=== PATIENT | female | born 1990 | race African-American/Black ===

== ENCOUNTER 2018-02-06 18:05 | Inpatient (IN) ==
[2018-02-06] MEDS ORDERED: ONDANSETRON 4 MG/2 ML VIAL IV ONE (21:22)
[2018-02-06] MEDS ORDERED: SODIUM CHLORIDE 0.9% 1,000 ML IV STA (21:22)
[2018-02-06] MEDS ORDERED: MORPHINE 2 MG/1 ML SYRINGE IV ONE (21:22)
[2018-02-06] MEDS ORDERED: MORPHINE 10 MG/1 ML VIAL ONE (21:32)
[2018-02-06] MEDS ORDERED: ONDANSETRON 4 MG/2 ML VIAL ONE (21:32)
[2018-02-06 21:56] LABS: INR 1.2; PT Patient Result 12.9 SECS
[2018-02-06 22:05] LABS: Alanine Aminotransferase 21 U/L (13-56); Albumin 3.5 G/DL (3.4-5.0); Alkaline Phosphatase 76 U/L (45-117); Aspartate Amino Transferase 18 U/L (0-37); Bilirubin,Total < 0.39 MG/DL (0.2-1.0); Blood Urea Nitrogen 8 MG/DL (7-18); Calcium 9.3 MG/DL (8.5-10.1); Glucose 111 MG/DL (74-106); Osmolality,Calculated 258.8 MOS/KG (273-304); Potassium 3.6 MMOL/L (3.5-5.1); Sodium 130 MMOL/L (136-145); Total Protein 8.4 G/DL (6.4-8.3)
[2018-02-06 22:09] LABS: Basophils # 0.1 10*3/uL (0.0-0.2); Basophils % 0.3 % (0.0-0.8); Eosinophils % 0.1 % (0.00-10.9); Hemoglobin 8.4 GM/DL (12.0-16.0); Immature Granulocytes % 1.1 %; Immature Granulocytes Absolute 0.22 #; Lymphocytes # 2.2 10*3/uL (1.4-4.0); Lymphocytes % 11.5 % (21.3-54.2); Mean Corpuscular Hemoglobin 19 PG (27-34); Mean Corpuscular Volume 66.7 FL (87-102); Mean Platelet Volume 10.1 FL (9.6-12.0); Monocytes # 2.2 10*3/uL (0.11-0.8); Monocytes % 11.4 % (1.7-12.7); NRBC # 0.04 10*3/uL; Neutrophils # 14.7 10*3/uL (1.4-7.4); Neutrophils % 75.6 % (38.7-73.9); Platelet Count 641 T/CUMM (130-400); Red Cell Distribution Width 18.4 % (9.3-17.3); White Blood Count 19.5 T/CUMM (4-12)
[2018-02-06 22:29] LABS: Anisocytosis 2+; Hypochromasia 2+; Macrocytosis 2+; Platelet Estimate Increased; Polychromasia 1+; Target Cells Few
[2018-02-06 23:21] LABS: Apearance,Urine Slightly Hazy (Clear); Bilirubin,Urine Negative (Negative); Blood, Urine Negative (Negative); Glucose,Urine (UA) Negative (Negative); Ketones,Urine 20 mg/dL (Negative); Mucus,Urine Occasional /LPF (Occasional); Nitrite,Urine Negative (Negative); Protein,Urine Negative; RBC,Urine 2 /HPF (0-4); Squamous Epithelial Cell,Urine Occasional /HPF (0-10); Urine Color Yellow (Yellow); Urine Specific Gravity 1.048 (1.001-1.035); Urine Urobilinogen < 2.0 EU/DL (0.2-1.0); WBC,Urine 6 /HPF (0-6)
[2018-02-06] MEDS ORDERED: CIPROFLOXACIN INJ 400 MG in PREMIX 1 EACH IV STA (23:42)
[2018-02-06] MEDS ORDERED: metroNIDAZOLE INJ 500 MG in PREMIX 1 EACH IV STA (23:42)
[2018-02-06] MEDS ORDERED: CIPROFLOXACIN 400 MG/200 ML PREMIX IV ONE (23:58)
[2018-02-06] MEDS ORDERED: metroNIDAZOLE 500 MG/100 ML PREMIX IV ONE (23:58)
[2018-02-07] MEDS ORDERED: MORPHINE 2 MG/1 ML SYRINGE IV PRN (01:27)
[2018-02-07] MEDS: SODIUM CHLORIDE 0.9% 1,000 ML IV SCH ×3 (03:46→18:12)
[2018-02-07 05:44] LABS: Basophils % 0.2 % (0.0-0.8); Hematocrit 20.8 VOL% (35.7-47.0); Immature Granulocytes % 1.2 %; Immature Granulocytes Absolute 0.27 #; Lymphocytes # 2.3 10*3/uL (1.4-4.0); Lymphocytes % 10.5 % (21.3-54.2); Mean Corpuscular HGB Conc 28.4 GM/DL (32-36); Mean Corpuscular Hemoglobin 19 PG (27-34); Mean Corpuscular Volume 67.3 FL (87-102); Mean Platelet Volume 10.5 FL (9.6-12.0); Monocytes % 13.7 % (1.7-12.7); NRBC # 0.03 10*3/uL; Neutrophils # 16.3 10*3/uL (1.4-7.4); Neutrophils % 74.4 % (38.7-73.9); Platelet Count 599 T/CUMM (130-400); Red Blood Count 3.09 MC/CUMM (3.8-5.5)
[2018-02-07 06:17] LABS: Calcium 8.2 MG/DL (8.5-10.1); Osmolality,Calculated 267.1 MOS/KG (273-304); Potassium 3.6 MMOL/L (3.5-5.1)
[2018-02-07 06:23] LABS: Hemoglobin 5.9 GM/DL (12.0-16.0)
[2018-02-07 06:24] LABS: Hypochromasia 2+
[2018-02-07 06:25] LABS: Microcytosis 2+; Ovalocytes Slight; Platelet Estimate Increased; Target Cells Slight
[2018-02-07] MEDS ORDERED: SODIUM CHLORIDE 0.9% 1,000 ML IV PRN ×3 (06:49→07:54)
[2018-02-07 07:21] LABS: Hematocrit 20.1 VOL% (35.7-47.0)
[2018-02-07 07:23] LABS: Hemoglobin 5.8 GM/DL (12.0-16.0)
[2018-02-07] MEDS: metroNIDAZOLE INJ 500 MG in PREMIX 1 EACH IV SCH ×2 (09:30→18:40)
[2018-02-07] MEDS ORDERED: IRON SUCROSE 300 MG in SODIUM CHLORIDE 0.9% 100 ML IV ONE (11:00)
[2018-02-07] MEDS: CIPROFLOXACIN INJ 400 MG in PREMIX 1 EACH IV SCH (16:18)
[2018-02-07] MEDS: ONDANSETRON 4 MG/2 ML VIAL IV PRN (21:41)
[2018-02-08] MEDS: CIPROFLOXACIN INJ 400 MG in PREMIX 1 EACH IV SCH ×3 (01:31→21:43)
[2018-02-08] MEDS: metroNIDAZOLE INJ 500 MG in PREMIX 1 EACH IV SCH ×3 (03:18→18:11)
[2018-02-08] MEDS: SODIUM CHLORIDE 0.9% 1,000 ML IV SCH ×2 (03:19→17:48)
[2018-02-08 05:27] LABS: Basophils # 0.1 10*3/uL (0.0-0.2); Basophils % 0.4 % (0.0-0.8); Eosinophils # 0.1 10*3/uL (0.0-0.87); Eosinophils % 0.7 % (0.00-10.9); Hematocrit 26.3 VOL% (35.7-47.0); Immature Granulocytes Absolute 0.45 #; Lymphocytes # 2.1 10*3/uL (1.4-4.0); Lymphocytes % 14.2 % (21.3-54.2); Mean Corpuscular HGB Conc 30.4 GM/DL (32-36); Mean Corpuscular Hemoglobin 22 PG (27-34); Mean Corpuscular Volume 72.5 FL (87-102); Mean Platelet Volume 10.1 FL (9.6-12.0); Monocytes % 13.4 % (1.7-12.7); NRBC # 0.04 10*3/uL; Neutrophils # 10.1 10*3/uL (1.4-7.4); Neutrophils % 68.3 % (38.7-73.9); Platelet Count 519 T/CUMM (130-400); Red Blood Count 3.63 MC/CUMM (3.8-5.5); Red Cell Distribution Width 21.2 % (9.3-17.3); White Blood Count 14.8 T/CUMM (4-12)
[2018-02-08 06:03] LABS: Albumin 2.6 G/DL (3.4-5.0); Bilirubin,Total 0.5 MG/DL (0.2-1.0); Calcium 8.3 MG/DL (8.5-10.1); Ferritin 115.4 ng/ml (8-252); Osmolality,Calculated 269.8 MOS/KG (273-304); Potassium 3.5 MMOL/L (3.5-5.1); Total Protein 6.7 G/DL (6.4-8.3)
[2018-02-08] MEDS ORDERED: IRON SUCROSE 300 MG in SODIUM CHLORIDE 0.9% 100 ML IV ONE (10:30)
[2018-02-08] MEDS: MULTIVITAMIN (BEROCCA) TABLET PO SCH (12:15)
[2018-02-09] MEDS: metroNIDAZOLE INJ 500 MG in PREMIX 1 EACH IV SCH ×3 (04:41→21:02)
[2018-02-09] MEDS: SODIUM CHLORIDE 0.9% 1,000 ML IV SCH ×4 (04:41→21:03)
[2018-02-09 05:55] LABS: Basophils # 0.1 10*3/uL (0.0-0.2); Basophils % 0.3 % (0.0-0.8); Eosinophils # 0.1 10*3/uL (0.0-0.87); Eosinophils % 0.5 % (0.00-10.9); Hematocrit 26.7 VOL% (35.7-47.0); Hemoglobin 8.2 GM/DL (12.0-16.0); Immature Granulocytes % 2.3 %; Lymphocytes # 2.2 10*3/uL (1.4-4.0); Lymphocytes % 12.5 % (21.3-54.2); Mean Corpuscular HGB Conc 30.7 GM/DL (32-36); Mean Corpuscular Hemoglobin 22 PG (27-34); Mean Corpuscular Volume 72.8 FL (87-102); Mean Platelet Volume 9.8 FL (9.6-12.0); Monocytes # 2.3 10*3/uL (0.11-0.8); Monocytes % 13.1 % (1.7-12.7); NRBC # 0.08 10*3/uL; Neutrophils # 12.3 10*3/uL (1.4-7.4); Neutrophils % 71.3 % (38.7-73.9); Platelet Count 556 T/CUMM (130-400); Red Blood Count 3.67 MC/CUMM (3.8-5.5); Red Cell Distribution Width 21.8 % (9.3-17.3); White Blood Count 17.3 T/CUMM (4-12)
[2018-02-09 06:30] LABS: Calcium 8.2 MG/DL (8.5-10.1); Osmolality,Calculated 268.8 MOS/KG (273-304); Potassium 3.5 MMOL/L (3.5-5.1)
[2018-02-09] MEDS: CIPROFLOXACIN INJ 400 MG in PREMIX 1 EACH IV SCH ×2 (08:28→22:21)
[2018-02-09] MEDS: MULTIVITAMIN (BEROCCA) TABLET PO SCH (10:48)
[2018-02-09] MEDS ORDERED: IRON SUCROSE 300 MG in SODIUM CHLORIDE 0.9% 100 ML IV ONE (11:00)
[2018-02-09] MEDS: SODIUM PHOSPHATE ENEMA 133 ML BOTTLE RECTAL ONE ×2 (11:26→11:35)
[2018-02-09] MEDS: methylPREDNISolone SOD SUC 40 MG/1 ML VIAL IV SCH ×2 (15:51→21:10)
[2018-02-09] MEDS ORDERED: ACETAMINOPHEN 500 MG TABLET PO PRN (16:37)
[2018-02-10] MEDS: metroNIDAZOLE INJ 500 MG in PREMIX 1 EACH IV SCH ×3 (04:47→20:45)
[2018-02-10] MEDS: methylPREDNISolone SOD SUC 40 MG/1 ML VIAL IV SCH ×3 (04:50→21:35)
[2018-02-10 06:21] LABS: Basophils # 0.1 10*3/uL (0.0-0.2); Basophils % 0.2 % (0.0-0.8); Hematocrit 27.2 VOL% (35.7-47.0); Hemoglobin 8.4 GM/DL (12.0-16.0); Immature Granulocytes % 2.5 %; Immature Granulocytes Absolute 0.63 #; Lymphocytes # 1.1 10*3/uL (1.4-4.0); Lymphocytes % 4.3 % (21.3-54.2); Mean Corpuscular HGB Conc 30.9 GM/DL (32-36); Mean Corpuscular Hemoglobin 23 PG (27-34); Mean Corpuscular Volume 73.9 FL (87-102); Mean Platelet Volume 9.8 FL (9.6-12.0); Monocytes # 0.8 10*3/uL (0.11-0.8); Monocytes % 3.2 % (1.7-12.7); NRBC # 0.04 10*3/uL; Neutrophils # 22.7 10*3/uL (1.4-7.4); Neutrophils % 89.8 % (38.7-73.9); Platelet Count 554 T/CUMM (130-400); Red Blood Count 3.68 MC/CUMM (3.8-5.5); White Blood Count 25.2 T/CUMM (4-12)
[2018-02-10 06:46] LABS: Band Neutrophils 4 % (0-10); Giant Platelets Few; Hypochromasia 1+; Lymphocytes 6 % (20-55); Macrocytosis Slight; Ovalocytes Slight; Platelet Estimate Adequate; Polychromasia Slight; Segmented Neutrophils 87 % (50-85); Total Cells Counted 100
[2018-02-10 07:01] LABS: Albumin 2.4 G/DL (3.4-5.0); Bilirubin,Total 0.7 MG/DL (0.2-1.0); Calcium 8.8 MG/DL (8.5-10.1); Osmolality,Calculated 274.5 MOS/KG (273-304); Potassium 3.8 MMOL/L (3.5-5.1)
[2018-02-10] MEDS: MULTIVITAMIN (BEROCCA) TABLET PO SCH (08:56)
[2018-02-10] MEDS: CIPROFLOXACIN INJ 400 MG in PREMIX 1 EACH IV SCH ×2 (08:56→21:48)
[2018-02-10] MEDS: SODIUM CHLORIDE 0.9% 1,000 ML IV SCH ×2 (10:19→21:00)
[2018-02-10] MEDS ORDERED: LIDOCAINE 100 MG/5 ML SYRINGE ONE (12:22)
[2018-02-10] MEDS ORDERED: PROPOFOL 200 MG/20 ML VIAL IV ONE (12:22)
[2018-02-10] MEDS ORDERED: IRON SUCROSE 300 MG in SODIUM CHLORIDE 0.9% 100 ML IV ONE (17:00)
[2018-02-10 22:26] LABS: IgA Serum (MAYO) 509 mg/dL (61 - 356)
[2018-02-11] MEDS: methylPREDNISolone SOD SUC 40 MG/1 ML VIAL IV SCH ×3 (04:55→20:27)
[2018-02-11] MEDS: metroNIDAZOLE INJ 500 MG in PREMIX 1 EACH IV SCH ×3 (04:58→20:29)
[2018-02-11 05:15] LABS: Basophils # 0.1 10*3/uL (0.0-0.2); Basophils % 0.2 % (0.0-0.8); Hematocrit 27.2 VOL% (35.7-47.0); Hemoglobin 8.5 GM/DL (12.0-16.0); Immature Granulocytes % 5.7 %; Immature Granulocytes Absolute 1.44 #; Lymphocytes # 1.1 10*3/uL (1.4-4.0); Lymphocytes % 4.3 % (21.3-54.2); Mean Corpuscular HGB Conc 31.3 GM/DL (32-36); Mean Corpuscular Hemoglobin 23 PG (27-34); Mean Corpuscular Volume 72.7 FL (87-102); Mean Platelet Volume 10.1 FL (9.6-12.0); Monocytes # 1.6 10*3/uL (0.11-0.8); Monocytes % 6.2 % (1.7-12.7); NRBC # 0.03 10*3/uL; Neutrophils % 83.6 % (38.7-73.9); Platelet Count 602 T/CUMM (130-400); Red Blood Count 3.74 MC/CUMM (3.8-5.5); Red Cell Distribution Width 23.6 % (9.3-17.3); White Blood Count 25.1 T/CUMM (4-12)
[2018-02-11 05:41] LABS: Band Neutrophils 5 % (0-10); Giant Platelets Few; Hypochromasia 1+; Lymphocytes 2 % (20-55); Myelocytes 1 %; Ovalocytes Slight; Platelet Estimate Increased; Segmented Neutrophils 90 % (50-85); Total Cells Counted 100
[2018-02-11 05:42] LABS: Macrocytosis Slight; Polychromasia Slight
[2018-02-11 05:50] LABS: % Iron Saturation 94.2 % (18-50)
[2018-02-11 05:51] LABS: Calcium 8.6 MG/DL (8.5-10.1); Osmolality,Calculated 274.7 MOS/KG (273-304); Potassium 3.8 MMOL/L (3.5-5.1)
[2018-02-11] MEDS: CIPROFLOXACIN INJ 400 MG in PREMIX 1 EACH IV SCH ×2 (09:53→21:55)
[2018-02-11] MEDS: MULTIVITAMIN (BEROCCA) TABLET PO SCH (09:53)
[2018-02-11] MEDS: ONDANSETRON 4 MG/2 ML VIAL IV PRN ×2 (12:09→20:24)
[2018-02-11] MEDS: SODIUM CHLORIDE 0.9% 1,000 ML IV SCH ×3 (12:12→20:00)
[2018-02-11 13:39] LABS: Tissue Transglutaminase IgA Ab < 1.2 U/mL
[2018-02-12] MEDS: SODIUM CHLORIDE 0.9% 1,000 ML IV SCH (01:00)
[2018-02-12] MEDS: methylPREDNISolone SOD SUC 40 MG/1 ML VIAL IV SCH (04:40)
[2018-02-12] MEDS: metroNIDAZOLE INJ 500 MG in PREMIX 1 EACH IV SCH (04:41)
[2018-02-12] MEDS: ONDANSETRON 4 MG/2 ML VIAL IV PRN (04:47)
[2018-02-12 06:29] LABS: Basophils # 0.1 10*3/uL (0.0-0.2); Basophils % 0.3 % (0.0-0.8); Hematocrit 28.4 VOL% (35.7-47.0); Hemoglobin 8.4 GM/DL (12.0-16.0); Immature Granulocytes % 12.9 %; Immature Granulocytes Absolute 3.01 #; Lymphocytes # 1.9 10*3/uL (1.4-4.0); Mean Corpuscular HGB Conc 29.6 GM/DL (32-36); Mean Corpuscular Hemoglobin 23 PG (27-34); Mean Corpuscular Volume 75.9 FL (87-102); Mean Platelet Volume 10.2 FL (9.6-12.0); Monocytes # 1.4 10*3/uL (0.11-0.8); Monocytes % 6.2 % (1.7-12.7); NRBC # 0.09 10*3/uL; Neutrophils % 72.6 % (38.7-73.9); Platelet Count 587 T/CUMM (130-400); Red Blood Count 3.74 MC/CUMM (3.8-5.5); Red Cell Distribution Width 24.5 % (9.3-17.3); White Blood Count 23.3 T/CUMM (4-12)
[2018-02-12 06:52] LABS: Band Neutrophils 8 % (0-10); Giant Platelets Few; Hypochromasia 1+; Lymphocytes 7 % (20-55); Macrocytosis Slight; Myelocytes 3 %; Platelet Estimate Increased; Segmented Neutrophils 75 % (50-85); Total Cells Counted 100
[2018-02-12 07:05] LABS: Calcium 8.4 MG/DL (8.5-10.1); Osmolality,Calculated 279.3 MOS/KG (273-304); Potassium 4.1 MMOL/L (3.5-5.1)
[2018-02-12 08:09] VITALS: BP 122/80
[2018-02-12] MEDS: MULTIVITAMIN (BEROCCA) TABLET PO SCH (08:28)
[2018-02-12] MEDS: CIPROFLOXACIN INJ 400 MG in PREMIX 1 EACH IV SCH (08:29)
== END 2018-02-12 10:00 | disposition home or self-care (01) | DRG 386 ==
LOC: N.ED 18:05 → N.EDINP 02-07 01:27 → N.2E 02-07 02:37
PROVIDERS: ADMIT Hospitalist; ATTEND Hospitalist

== ENCOUNTER 2018-06-13 19:38 | Inpatient (IN) ==
[2018-06-14] MEDS: SODIUM CHLORIDE 0.9% 1,000 ML IV SCH ×3 (01:30→21:25)
[2018-06-14] MEDS: metroNIDAZOLE INJ 500 MG in PREMIX 1 EACH IV SCH ×4 (03:54→21:24)
[2018-06-14] MEDS: LEVOFLOXACIN INJ 500 MG in PREMIX 1 EACH IV SCH (04:55)
[2018-06-14 07:33] LABS: Basophils % 0.3 % (0.0-0.8); Eosinophils # 0.1 10*3/uL (0.0-0.87); Eosinophils % 0.5 % (0.00-10.9); Hemoglobin 9.4 GM/DL (12.0-16.0); Immature Granulocytes % 0.5 %; Immature Granulocytes Absolute 0.07 #; Lymphocytes # 1.7 10*3/uL (1.4-4.0); Lymphocytes % 11.4 % (21.3-54.2); Mean Corpuscular HGB Conc 33.6 GM/DL (32-36); Mean Corpuscular Hemoglobin 28 PG (27-34); Mean Corpuscular Volume 82.8 FL (87-102); Mean Platelet Volume 8.9 FL (9.6-12.0); Monocytes # 1.7 10*3/uL (0.11-0.8); Monocytes % 11.1 % (1.7-12.7); Neutrophils # 11.7 10*3/uL (1.4-7.4); Neutrophils % 76.2 % (38.7-73.9); Platelet Count 547 T/CUMM (130-400); Red Blood Count 3.38 MC/CUMM (3.8-5.5); Red Cell Distribution Width 14.8 % (9.3-17.3); White Blood Count 15.3 T/CUMM (4-12)
[2018-06-14 08:05] LABS: Alanine Aminotransferase 9 U/L (13-56); Albumin 1.7 G/DL (3.4-5.0); Alkaline Phosphatase 102 U/L (45-117); Aspartate Amino Transferase 7 U/L (0-37); Bilirubin,Total < 0.39 MG/DL (0.2-1.0); Blood Urea Nitrogen 5 MG/DL (7-18); Calcium 7.8 MG/DL (8.5-10.1); Glucose 89 MG/DL (74-106); Potassium 3.2 MMOL/L (3.5-5.1); Sodium 136 MMOL/L (136-145); Total Protein 6.3 G/DL (6.4-8.3)
[2018-06-14] MEDS ORDERED: MAGNESIUM SULF RIDER 4 GM in PREMIX 1 EACH IV PRN (11:28)
[2018-06-14] MEDS ORDERED: MAGNESIUM SULF RIDER 2 GM in PREMIX 1 EACH IV PRN (11:28)
[2018-06-14] MEDS: methylPREDNISolone SOD SUC 40 MG/1 ML VIAL IV SCH ×2 (13:01→17:16)
[2018-06-14] MEDS: ONDANSETRON 4 MG/2 ML VIAL IV PRN (13:02)
[2018-06-14] MEDS: POTASSIUM CHLORIDE RIDER 10 MEQ in PREMIX 1 EACH IV PRN ×4 (15:18→23:50)
[2018-06-15] MEDS ORDERED: metroNIDAZOLE INJ 500 MG in PREMIX 1 EACH IV SCH
[2018-06-15] MEDS ORDERED: LEVOFLOXACIN INJ 500 MG in PREMIX 1 EACH IV SCH (01:00)
[2018-06-15] MEDS: methylPREDNISolone SOD SUC 40 MG/1 ML VIAL IV SCH ×3 (03:15→21:53)
[2018-06-15] MEDS: LEVOFLOXACIN INJ 500 MG in PREMIX 1 EACH IV SCH (03:16)
[2018-06-15] MEDS: metroNIDAZOLE INJ 500 MG in PREMIX 1 EACH IV SCH ×4 (05:08→21:50)
[2018-06-15] MEDS: SODIUM CHLORIDE 0.9% 1,000 ML IV SCH (06:36)
[2018-06-15] MEDS: POTASSIUM CHLORIDE RIDER 10 MEQ in PREMIX 1 EACH IV PRN ×4 (09:34→15:58)
[2018-06-15 09:48] LABS: Potassium 3.2 MMOL/L (3.5-5.1)
[2018-06-15] MEDS: SODIUM CHLOR 0.9% KCL 20 MEQ 20 MEQ/1,000 ML BAG IV SCH (11:34)
[2018-06-16] MEDS: SODIUM CHLOR 0.9% KCL 20 MEQ 20 MEQ/1,000 ML BAG IV SCH ×2 (00:02→11:37)
[2018-06-16] MEDS: LEVOFLOXACIN INJ 500 MG in PREMIX 1 EACH IV SCH (01:06)
[2018-06-16 04:53] LABS: Basophils % 0.1 % (0.0-0.8); Hematocrit 27.9 VOL% (35.7-47.0); Hemoglobin 9.5 GM/DL (12.0-16.0); Immature Granulocytes % 1.8 %; Immature Granulocytes Absolute 0.36 #; Lymphocytes % 5.2 % (21.3-54.2); Mean Corpuscular HGB Conc 34.1 GM/DL (32-36); Mean Corpuscular Hemoglobin 28 PG (27-34); Mean Corpuscular Volume 81.8 FL (87-102); Mean Platelet Volume 9.5 FL (9.6-12.0); Monocytes # 0.6 10*3/uL (0.11-0.8); Monocytes % 2.8 % (1.7-12.7); Neutrophils # 17.5 10*3/uL (1.4-7.4); Neutrophils % 90.1 % (38.7-73.9); Platelet Count 629 T/CUMM (130-400); Red Blood Count 3.41 MC/CUMM (3.8-5.5); Red Cell Distribution Width 15.4 % (9.3-17.3); White Blood Count 19.5 T/CUMM (4-12)
[2018-06-16] MEDS: metroNIDAZOLE INJ 500 MG in PREMIX 1 EACH IV SCH ×2 (04:55→08:37)
[2018-06-16] MEDS: methylPREDNISolone SOD SUC 40 MG/1 ML VIAL IV SCH ×3 (04:58→22:16)
[2018-06-16 05:25] LABS: Calcium 8.7 MG/DL (8.5-10.1); Osmolality,Calculated 278.3 MOS/KG (273-304); Potassium 3.5 MMOL/L (3.5-5.1)
[2018-06-16] MEDS: ONDANSETRON 4 MG/2 ML VIAL IV PRN (08:44)
[2018-06-16] MEDS ORDERED: SODIUM CHLORIDE 0.9% 1,000 ML IV SCH (11:30)
[2018-06-16] MEDS: POTASSIUM CHLORIDE RIDER 10 MEQ in PREMIX 1 EACH IV PRN ×3 (11:37→15:33)
[2018-06-16] MEDS: sulfaSALAzine 500 MG TABLET PO SCH (22:13)
[2018-06-17] MEDS: methylPREDNISolone SOD SUC 40 MG/1 ML VIAL IV SCH (05:42)
[2018-06-17 07:24] VITALS: BP 113/78
[2018-06-17] MEDS: sulfaSALAzine 500 MG TABLET PO SCH (08:32)
== END 2018-06-17 12:10 | disposition home or self-care (01) | DRG 387 ==
LOC: N.2E 21:12 → SUATTDRO 21:12
PROVIDERS: ADMIT Internal Medicine; ATTEND Internal Medicine

== ENCOUNTER 2019-06-16 16:48 | Inpatient (IN) ==
[2019-06-16] MEDS ORDERED: ONDANSETRON 4 MG/2 ML VIAL IV STA (17:32)
[2019-06-16] MEDS ORDERED: SODIUM CHLORIDE 0.9% 500 ML IV STA (17:32)
[2019-06-16] MEDS ORDERED: HYDROmorphone 2 MG/1 ML VIAL IV STA (17:32)
[2019-06-16] MEDS ORDERED: CEFTAROLINE 600 MG in SODIUM CHLORIDE 0.9% 100 ML IV STA (17:35)
[2019-06-16 18:32] LABS: Albumin 2.9 G/DL (3.4-5.0); Bilirubin,Total 0.7 MG/DL (0.2-1.0); Calcium 9.5 MG/DL (8.5-10.1); Osmolality,Calculated 264.5 MOS/KG (273-304); Total Protein 9.5 G/DL (6.4-8.3)
[2019-06-16 18:35] LABS: Basophils # 0.1 10*3/uL (0.0-0.2); Basophils % 0.3 % (0.0-0.8); Hematocrit 24.6 VOL% (35.7-47.0); Immature Granulocytes % 6.2 %; Immature Granulocytes Absolute 2.43 #; Lymphocytes % 5.1 % (21.3-54.2); Mean Corpuscular HGB Conc 25.6 GM/DL (32-36); Mean Corpuscular Volume 60.4 FL (87-102); Mean Platelet Volume 9.9 FL (9.6-12.0); Monocytes % 6.8 % (1.7-12.7); NRBC # 0.39 10*3/uL; Neutrophils % 81.6 % (38.7-73.9); Platelet Count 766 T/CUMM (130-400); Red Blood Count 4.07 MC/CUMM (3.8-5.5); Red Cell Distribution Width 20.6 % (9.3-17.3); White Blood Count 38.9 T/CUMM (4-12)
[2019-06-16 18:36] LABS: Hemoglobin 6.3 GM/DL (12.0-16.0)
[2019-06-16] MEDS ORDERED: VANCOMYCIN INJ 1,000 MG in SODIUM CHLORIDE 0.9% 250 ML IV STA ×2 (19:06→19:58)
[2019-06-16 19:23] LABS: Sedimentation Rate-Westergren 60 MM/HR (0-20)
[2019-06-16] MEDS ORDERED: SODIUM CHLORIDE 0.9% 2,600 ML IV ONE ×2 (19:23→19:49)
[2019-06-16] MEDS ORDERED: methylPREDNISolone SOD SUC 125 MG/2 ML VIAL IV STA (19:24)
[2019-06-16] MEDS ORDERED: ALBUTEROL 2.5 MG/3 ML NEB RESP TX PRN (19:49)
[2019-06-16] MEDS ORDERED: ACETAMINOPHEN 325 MG TABLET PO PRN (19:49)
[2019-06-16] MEDS ORDERED: SODIUM CHLORIDE 0.9% 1,000 ML IV PRN (19:57)
[2019-06-16 20:26] LABS: Thyroid Stimulating Hormone 3.11 uIU/ml (0.358-3.74)
[2019-06-16 20:26] LABS: Band Neutrophils 7 % (0-10); Lymphocytes 2 % (20-55); Metamyelocytes 3 %; Myelocytes 1 %; Platelet Estimate Increased; Segmented Neutrophils 84 % (50-85); Total Cells Counted 100
[2019-06-16 20:27] LABS: Anisocytosis 2+; Hypochromasia 3+; Microcytosis 2+; Ovalocytes Few; Polychromasia 1+
[2019-06-16 20:44] LABS: Ferritin 36.8 ng/ml (8-252)
[2019-06-16] MEDS: MORPHINE 4 MG/1 ML VIAL IV PRN (21:21)
[2019-06-16] MEDS: FAMOTIDINE 20 MG/2 ML VIAL IV SCH (21:50)
[2019-06-16] MEDS: SODIUM CHLORIDE 0.9% 1,000 ML IV SCH (22:21)
[2019-06-17] MEDS: SODIUM CHLORIDE 0.9% 1,000 ML IV SCH ×5 (01:27→22:22)
[2019-06-17 02:22] LABS: Apearance,Urine CLOUDY (Clear); Bilirubin,Urine Negative (Negative); Blood, Urine Large mg/dL (Negative); Glucose,Urine (UA) 50 mg/dL (Negative); Hyaline Casts,Urine 11 /LPF (0-3); Ketones,Urine 20 mg/dL (Negative); Mucus,Urine Many /LPF (Occasional); Nitrite,Urine Negative (Negative); Protein,Urine 100 MG/DL; RBC,Urine 27 /HPF (0-4); Squamous Epithelial Cell,Urine Occasional /HPF (0-10); Urine Color Amber (Yellow); Urine Specific Gravity 1.018 (1.001-1.035); Urine Urobilinogen < 2.0 EU/DL (0.2-1.0); WBC,Urine 395 /HPF (0-6)
[2019-06-17 06:34] LABS: Basophils # 0.1 10*3/uL (0.0-0.2); Basophils % 0.3 % (0.0-0.8); Hematocrit 25.4 VOL% (35.7-47.0); Hemoglobin 7.2 GM/DL (12.0-16.0); Immature Granulocytes % 4.6 %; Immature Granulocytes Absolute 1.22 #; Lymphocytes # 0.9 10*3/uL (1.4-4.0); Lymphocytes % 3.5 % (21.3-54.2); Mean Corpuscular HGB Conc 28.3 GM/DL (32-36); Mean Corpuscular Volume 70.9 FL (87-102); Mean Platelet Volume 9.7 FL (9.6-12.0); Monocytes % 1.5 % (1.7-12.7); NRBC # 0.09 10*3/uL; Neutrophils % 90.1 % (38.7-73.9); Platelet Count 583 T/CUMM (130-400); Red Blood Count 3.58 MC/CUMM (3.8-5.5); Red Cell Distribution Width 26.4 % (9.3-17.3); White Blood Count 26.5 T/CUMM (4-12)
[2019-06-17 06:56] LABS: Band Neutrophils 3 % (0-10); Hypochromasia 1+; Lymphocytes 1 % (20-55); Platelet Estimate Adequate; Segmented Neutrophils 96 % (50-85); Total Cells Counted 100
[2019-06-17 06:57] LABS: Microcytosis 1+
[2019-06-17 07:07] LABS: Albumin 2.2 G/DL (3.4-5.0); Bilirubin,Total 0.7 MG/DL (0.2-1.0); Calcium 6.9 MG/DL (8.5-10.1); Osmolality,Calculated 270.8 MOS/KG (273-304); Total Protein 7.2 G/DL (6.4-8.3)
[2019-06-17] MEDS ORDERED: CEFTAROLINE 600 MG in SODIUM CHLORIDE 0.9% 100 ML IV SCH (08:00)
[2019-06-17] MEDS ORDERED: VANCOMYCIN 1,000 MG VIAL ONE (08:12)
[2019-06-17] MEDS ORDERED: cefTRIAXone 1,000 MG VIAL ONE (08:12)
[2019-06-17] MEDS ORDERED: MORPHINE 4 MG/1 ML VIAL IV PRN (09:43)
[2019-06-17] MEDS ORDERED: MAGNESIUM HYDROXIDE SUSP 30 ML UDCUP PO PRN (09:43)
[2019-06-17] MEDS: cefTRIAXone 2,000 MG in SYRINGE 1 EACH IV SCH (09:54)
[2019-06-17] MEDS: VANCOMYCIN INJ 1,500 MG in SODIUM CHLORIDE 0.9% 500 ML IV SCH ×2 (09:54→22:22)
[2019-06-17] MEDS ORDERED: PROPOFOL 200 MG/20 ML VIAL IV ONE (09:57)
[2019-06-17] MEDS ORDERED: fentaNYL 100 MCG/2 ML VIAL ONE (09:58)
[2019-06-17] MEDS ORDERED: GLYCOPYRROLATE 0.4 MG/2 ML VIAL ONE (09:58)
[2019-06-17] MEDS ORDERED: ONDANSETRON 4 MG/2 ML VIAL ONE (09:58)
[2019-06-17] MEDS ORDERED: SEVOFLURANE 1 UNIT/15 MINUTE INH ONE (09:58)
[2019-06-17] MEDS ORDERED: MIDAZOLAM 2 MG/2 ML VIAL ONE (09:58)
[2019-06-17] MEDS ORDERED: ROCURONIUM 100 MG/10 ML VIAL IV ONE (09:59)
[2019-06-17] MEDS ORDERED: NEOSTIGMINE 10 MG/10 ML VIAL ONE (09:59)
[2019-06-17] MEDS ORDERED: SODIUM CHLORIDE 0.9% 1,000 ML IV PRN (10:00)
[2019-06-17] MEDS: HYDROmorphone 2 MG/1 ML VIAL IV PRN ×3 (10:01→10:16)
[2019-06-17] MEDS ORDERED: HYDROmorphone 2 MG/1 ML VIAL ONE (10:01)
[2019-06-17 10:14] LABS: Apearance,Urine CLEAR (Clear); Bilirubin,Urine Negative (Negative); Blood, Urine Small mg/dL (Negative); Glucose,Urine (UA) 50 mg/dL (Negative); Ketones,Urine 20 mg/dL (Negative); Mucus,Urine Occasional /LPF (Occasional); Nitrite,Urine Negative (Negative); Protein,Urine Negative; RBC,Urine <1 /HPF (0-4); Squamous Epithelial Cell,Urine Occasional /HPF (0-10); Urine Color Yellow (Yellow); Urine Specific Gravity 1.018 (1.001-1.035); Urine Urobilinogen < 2.0 EU/DL (0.2-1.0); WBC,Urine 1 /HPF (0-6)
[2019-06-17] MEDS: FAMOTIDINE 20 MG/2 ML VIAL IV SCH (10:49)
[2019-06-17] MEDS: PANTOPRAZOLE 40 MG TABLET PO SCH ×2 (11:02→20:55)
[2019-06-17 12:06] LABS: FTA-ABS (MHATP) NONREACTIVE (NONREACTIVE)
[2019-06-17 12:23] LABS: HIV Antigen/Antibody Result Nonreactive (Nonreactive)
[2019-06-17] MEDS: FERRIC GLUCONATE COMPLEX 250 MG in SODIUM CHLORIDE 0.9% 100 ML IV SCH (12:44)
[2019-06-18] MEDS: FONDAPARINUX 2.5 MG/0.5 ML SYRINGE SUBCUT SCH (03:36)
[2019-06-18 05:51] LABS: Basophils # 0.1 10*3/uL (0.0-0.2); Basophils % 0.3 % (0.0-0.8); Hematocrit 31.1 VOL% (35.7-47.0); Hemoglobin 9.2 GM/DL (12.0-16.0); Immature Granulocytes % 4.3 %; Immature Granulocytes Absolute 1.11 #; Lymphocytes # 1.1 10*3/uL (1.4-4.0); Lymphocytes % 4.3 % (21.3-54.2); Mean Corpuscular HGB Conc 29.6 GM/DL (32-36); Mean Corpuscular Volume 74.6 FL (87-102); Mean Platelet Volume 9.9 FL (9.6-12.0); Monocytes % 4.6 % (1.7-12.7); NRBC # 0.39 10*3/uL; Neutrophils % 86.5 % (38.7-73.9); Platelet Count 504 T/CUMM (130-400); Red Blood Count 4.17 MC/CUMM (3.8-5.5); Red Cell Distribution Width 26.1 % (9.3-17.3); White Blood Count 25.7 T/CUMM (4-12)
[2019-06-18 06:05] LABS: Calcium 8.7 MG/DL (8.5-10.1); Osmolality,Calculated 275.5 MOS/KG (273-304)
[2019-06-18 06:21] LABS: Band Neutrophils 22 % (0-10); Lymphocytes 5 % (20-55); Nucleated Red Blood Cells 4 (0-5); Platelet Estimate Increased; Poikilocytosis 1+; Segmented Neutrophils 65 % (50-85); Total Cells Counted 100
[2019-06-18 06:22] LABS: Anisocytosis 2+; Giant Platelets Few; Macrocytosis Slight
[2019-06-18] MEDS: VANCOMYCIN INJ 1,500 MG in SODIUM CHLORIDE 0.9% 500 ML IV SCH (10:03)
[2019-06-18] MEDS: cefTRIAXone 2,000 MG in SYRINGE 1 EACH IV SCH (10:04)
[2019-06-18] MEDS: FERRIC GLUCONATE COMPLEX 250 MG in SODIUM CHLORIDE 0.9% 100 ML IV SCH (10:08)
[2019-06-18] MEDS: PANTOPRAZOLE 40 MG TABLET PO SCH ×2 (10:11→21:26)
[2019-06-18] MEDS: SODIUM CHLORIDE 0.9% 1,000 ML IV SCH ×3 (12:31→20:00)
[2019-06-18] MEDS ORDERED: POTASSIUM CHLORIDE 20 MEQ PACK PO ONE (15:42)
[2019-06-18] MEDS: sulfaSALAzine 500 MG TABLET PO SCH (21:25)
[2019-06-18] MEDS: FLUCONAZOLE INJ 400 MG in PREMIX 1 EACH IV SCH (22:57)
[2019-06-19 05:42] LABS: Basophils % 0.2 % (0.0-0.8); Eosinophils % 0.1 % (0.00-10.9); Hematocrit 31.3 VOL% (35.7-47.0); Hemoglobin 9.2 GM/DL (12.0-16.0); Immature Granulocytes % 3.3 %; Immature Granulocytes Absolute 0.55 #; Lymphocytes # 1.9 10*3/uL (1.4-4.0); Lymphocytes % 11.6 % (21.3-54.2); Mean Corpuscular HGB Conc 29.4 GM/DL (32-36); Mean Corpuscular Volume 75.1 FL (87-102); Mean Platelet Volume 9.6 FL (9.6-12.0); Monocytes % 6.6 % (1.7-12.7); NRBC # 0.18 10*3/uL; Neutrophils % 78.2 % (38.7-73.9); Platelet Count 553 T/CUMM (130-400); Red Blood Count 4.17 MC/CUMM (3.8-5.5); Red Cell Distribution Width 27.4 % (9.3-17.3); White Blood Count 16.6 T/CUMM (4-12)
[2019-06-19 06:15] LABS: Bilirubin,Total 0.6 MG/DL (0.2-1.0); Calcium 8.6 MG/DL (8.5-10.1); Osmolality,Calculated 285.6 MOS/KG (273-304); Total Protein 6.3 G/DL (6.4-8.3)
[2019-06-19 06:22] LABS: Anisocytosis 1+; Platelet Estimate Increased
[2019-06-19] MEDS: FERRIC GLUCONATE COMPLEX 250 MG in SODIUM CHLORIDE 0.9% 100 ML IV SCH (08:07)
[2019-06-19] MEDS: FONDAPARINUX 2.5 MG/0.5 ML SYRINGE SUBCUT SCH (08:15)
[2019-06-19] MEDS: cefTRIAXone 2,000 MG in SYRINGE 1 EACH IV SCH (08:15)
[2019-06-19] MEDS: SODIUM CHLORIDE 0.9% 1,000 ML IV SCH ×2 (08:16→22:42)
[2019-06-19] MEDS ORDERED: NYSTATIN 500,000 UNIT/5 ML UDCUP SWISH/SWAL SCH (09:00)
[2019-06-19] MEDS: sulfaSALAzine 500 MG TABLET PO SCH ×3 (09:49→21:51)
[2019-06-19] MEDS: PANTOPRAZOLE 40 MG TABLET PO SCH ×2 (09:50→21:52)
[2019-06-19] MEDS: VANCOMYCIN INJ 1,250 MG in SODIUM CHLORIDE 0.9% 250 ML IV SCH ×2 (09:50→22:41)
[2019-06-19] MEDS: ONDANSETRON 4 MG/2 ML VIAL IV PRN (09:56)
[2019-06-19] MEDS: VANCOMYCIN INJ 1,500 MG in SODIUM CHLORIDE 0.9% 500 ML IV SCH (11:53)
[2019-06-19] MEDS: POTASSIUM CHLORIDE 20 MEQ TABLET PO PRN ×2 (16:48→18:35)
[2019-06-19] MEDS: PINDOLOL 5 MG TABLET PO SCH (16:49)
[2019-06-19] MEDS: FLUCONAZOLE INJ 400 MG in PREMIX 1 EACH IV SCH (22:41)
[2019-06-20 05:28] LABS: Basophils % 0.2 % (0.0-0.8); Eosinophils # 0.1 10*3/uL (0.0-0.87); Eosinophils % 0.4 % (0.00-10.9); Immature Granulocytes % 2.5 %; Immature Granulocytes Absolute 0.37 #; Lymphocytes # 1.9 10*3/uL (1.4-4.0); Lymphocytes % 12.5 % (21.3-54.2); Mean Corpuscular HGB Conc 28.8 GM/DL (32-36); Mean Corpuscular Volume 74.9 FL (87-102); Mean Platelet Volume 9.3 FL (9.6-12.0); Monocytes % 7.5 % (1.7-12.7); NRBC # 0.06 10*3/uL; Neutrophils % 76.9 % (38.7-73.9); Platelet Count 539 T/CUMM (130-400); Red Blood Count 4.35 MC/CUMM (3.8-5.5); Red Cell Distribution Width 28.8 % (9.3-17.3); White Blood Count 14.8 T/CUMM (4-12)
[2019-06-20 05:51] LABS: Hematocrit 31.5 VOL% (35.7-47.0); Hemoglobin 9.7 GM/DL (12.0-16.0)
[2019-06-20 05:53] LABS: Anisocytosis 1+; Hypochromasia 1+; Microcytosis 1+
[2019-06-20 05:54] LABS: Platelet Estimate Increased; Polychromasia Slight; Spherocytes Slight
[2019-06-20 05:55] LABS: Calcium 8.5 MG/DL (8.5-10.1); Osmolality,Calculated 274.4 MOS/KG (273-304); Ovalocytes Slight
[2019-06-20] MEDS: POTASSIUM CHLORIDE 20 MEQ TABLET PO PRN (06:12)
[2019-06-20] MEDS ORDERED: MAGNESIUM SULF RIDER 2 GM in PREMIX 1 EACH IV PRN (07:14)
[2019-06-20] MEDS ORDERED: MAGNESIUM SULF RIDER 4 GM in PREMIX 1 EACH IV PRN (07:14)
[2019-06-20] MEDS: PINDOLOL 5 MG TABLET PO SCH (09:25)
[2019-06-20] MEDS: PANTOPRAZOLE 40 MG TABLET PO SCH ×2 (09:25→22:54)
[2019-06-20] MEDS: sulfaSALAzine 500 MG TABLET PO SCH ×2 (09:26→22:53)
[2019-06-20] MEDS: FONDAPARINUX 2.5 MG/0.5 ML SYRINGE SUBCUT SCH (09:26)
[2019-06-20] MEDS: cefTRIAXone 2,000 MG in SYRINGE 1 EACH IV SCH (09:27)
[2019-06-20] MEDS: VANCOMYCIN INJ 1,250 MG in SODIUM CHLORIDE 0.9% 250 ML IV SCH ×2 (09:27→22:55)
[2019-06-20] MEDS: POTASSIUM CHLORIDE 20 MEQ/15 ML UDCUP PO PRN ×3 (09:33→16:49)
[2019-06-20] MEDS: KETOROLAC 30 MG/1 ML VIAL IV PRN (11:35)
[2019-06-20] MEDS: FERRIC GLUCONATE COMPLEX 250 MG in SODIUM CHLORIDE 0.9% 100 ML IV SCH (11:37)
[2019-06-20] MEDS: POTASSIUM CHLORIDE 20 MEQ TABLET PO SCH (13:15)
[2019-06-20] MEDS: SODIUM CHLORIDE 0.9% 1,000 ML IV SCH ×2 (13:25→20:00)
[2019-06-20] MEDS: FLUCONAZOLE 200 MG TABLET PO SCH (15:08)
[2019-06-20] MEDS: ONDANSETRON 4 MG/2 ML VIAL IV PRN (17:30)
[2019-06-20] MEDS: SERTRALINE 25 MG TABLET PO SCH (22:54)
[2019-06-21 06:25] LABS: Basophils % 0.2 % (0.0-0.8); Eosinophils # 0.3 10*3/uL (0.0-0.87); Eosinophils % 2.7 % (0.00-10.9); Hematocrit 32.1 VOL% (35.7-47.0); Hemoglobin 9.7 GM/DL (12.0-16.0); Immature Granulocytes % 2.2 %; Immature Granulocytes Absolute 0.27 #; Lymphocytes # 1.4 10*3/uL (1.4-4.0); Lymphocytes % 11.3 % (21.3-54.2); Mean Corpuscular HGB Conc 30.2 GM/DL (32-36); Mean Corpuscular Volume 75.7 FL (87-102); Mean Platelet Volume 9.6 FL (9.6-12.0); Monocytes % 7.5 % (1.7-12.7); Neutrophils % 76.1 % (38.7-73.9); Platelet Count 562 T/CUMM (130-400); Red Blood Count 4.24 MC/CUMM (3.8-5.5); Red Cell Distribution Width 29.7 % (9.3-17.3); White Blood Count 12.4 T/CUMM (4-12)
[2019-06-21 06:39] LABS: Calcium 8.6 MG/DL (8.5-10.1); Osmolality,Calculated 277.1 MOS/KG (273-304)
[2019-06-21 06:42] LABS: Hypochromasia 1+; Ovalocytes Slight; Platelet Estimate Adequate
[2019-06-21 06:43] LABS: Microcytosis 1+
[2019-06-21] MEDS: ONDANSETRON 4 MG/2 ML VIAL IV PRN ×3 (08:55→22:33)
[2019-06-21] MEDS: FLUCONAZOLE 200 MG TABLET PO SCH (08:57)
[2019-06-21] MEDS: PANTOPRAZOLE 40 MG TABLET PO SCH ×2 (08:57→22:25)
[2019-06-21] MEDS: POTASSIUM CHLORIDE 20 MEQ TABLET PO SCH (08:57)
[2019-06-21] MEDS: sulfaSALAzine 500 MG TABLET PO SCH ×2 (08:57→22:25)
[2019-06-21] MEDS: PINDOLOL 5 MG TABLET PO SCH (08:58)
[2019-06-21] MEDS: cefTRIAXone 2,000 MG in SODIUM CHLORIDE 0.9% 100 ML IV SCH (08:58)
[2019-06-21] MEDS: FONDAPARINUX 2.5 MG/0.5 ML SYRINGE SUBCUT SCH (08:59)
[2019-06-21] MEDS: SODIUM CHLORIDE 0.9% 1,000 ML IV SCH (09:01)
[2019-06-21] MEDS: FERRIC GLUCONATE COMPLEX 250 MG in SODIUM CHLORIDE 0.9% 100 ML IV SCH (09:57)
[2019-06-21] MEDS: POTASSIUM CHLORIDE 20 MEQ/15 ML UDCUP PO SCH (09:57)
[2019-06-21] MEDS: VANCOMYCIN INJ 1,250 MG in SODIUM CHLORIDE 0.9% 250 ML IV SCH ×2 (11:42→22:26)
[2019-06-21] MEDS: KETOROLAC 30 MG/1 ML VIAL IV PRN (15:55)
[2019-06-21] MEDS: SERTRALINE 25 MG TABLET PO SCH (22:25)
[2019-06-22 06:17] LABS: Basophils # 0.1 10*3/uL (0.0-0.2); Basophils % 0.4 % (0.0-0.8); Eosinophils # 0.4 10*3/uL (0.0-0.87); Eosinophils % 3.3 % (0.00-10.9); Hematocrit 34.3 VOL% (35.7-47.0); Hemoglobin 9.8 GM/DL (12.0-16.0); Immature Granulocytes % 1.8 %; Immature Granulocytes Absolute 0.21 #; Lymphocytes # 1.4 10*3/uL (1.4-4.0); Lymphocytes % 11.3 % (21.3-54.2); Mean Corpuscular HGB Conc 28.6 GM/DL (32-36); Mean Corpuscular Volume 78.3 FL (87-102); Mean Platelet Volume 9.4 FL (9.6-12.0); Monocytes % 9.1 % (1.7-12.7); Neutrophils % 74.1 % (38.7-73.9); Platelet Count 593 T/CUMM (130-400); Red Blood Count 4.38 MC/CUMM (3.8-5.5); Red Cell Distribution Width 30.5 % (9.3-17.3)
[2019-06-22 06:22] LABS: Hypochromasia 1+; Microcytosis 1+; Osmolality,Calculated 280.8 MOS/KG (273-304); Platelet Estimate Increased
[2019-06-22] MEDS ORDERED: PROMETHAZINE 25 MG/1 ML VIAL IM ONE (07:56)
[2019-06-22] MEDS: cefTRIAXone 2,000 MG in SODIUM CHLORIDE 0.9% 100 ML IV SCH (10:23)
[2019-06-22] MEDS: FONDAPARINUX 2.5 MG/0.5 ML SYRINGE SUBCUT SCH (10:26)
[2019-06-22] MEDS: KETOROLAC 30 MG/1 ML VIAL IV PRN (10:28)
[2019-06-22] MEDS: POTASSIUM CHLORIDE 20 MEQ/15 ML UDCUP PO SCH (10:30)
[2019-06-22] MEDS: ONDANSETRON 4 MG/2 ML VIAL IV PRN ×2 (10:31→17:41)
[2019-06-22] MEDS: PANTOPRAZOLE 40 MG TABLET PO SCH ×2 (10:53→21:08)
[2019-06-22] MEDS: sulfaSALAzine 500 MG TABLET PO SCH ×2 (10:53→21:08)
[2019-06-22] MEDS: VANCOMYCIN INJ 1,250 MG in SODIUM CHLORIDE 0.9% 250 ML IV SCH ×2 (10:59→23:15)
[2019-06-22] MEDS: PINDOLOL 5 MG TABLET PO SCH (11:01)
[2019-06-22] MEDS ORDERED: FLUCONAZOLE 200 MG TABLET PO SCH (13:00)
[2019-06-22] MEDS: FLUCONAZOLE 200 MG TABLET PO SCH (14:26)
[2019-06-22] MEDS: POTASSIUM CHLORIDE RIDER 10 MEQ in PREMIX 1 EACH IV PRN ×3 (14:49→21:24)
[2019-06-22] MEDS: MORPHINE 4 MG/1 ML VIAL IV PRN (15:55)
[2019-06-22] MEDS: SODIUM CHLORIDE 0.9% 1,000 ML IV SCH ×3 (19:20→21:36)
[2019-06-22] MEDS: PROMETHAZINE 25 MG/1 ML VIAL IM PRN (20:01)
[2019-06-22] MEDS: SERTRALINE 25 MG TABLET PO SCH (21:08)
[2019-06-23] MEDS: ONDANSETRON 4 MG/2 ML VIAL IV PRN ×2 (01:22→08:55)
[2019-06-23] MEDS: POTASSIUM CHLORIDE RIDER 10 MEQ in PREMIX 1 EACH IV PRN ×4 (01:22→12:47)
[2019-06-23] MEDS: MORPHINE 4 MG/1 ML VIAL IV PRN ×3 (05:13→16:54)
[2019-06-23 05:16] LABS: Basophils # 0.1 10*3/uL (0.0-0.2); Basophils % 0.4 % (0.0-0.8); Eosinophils # 0.4 10*3/uL (0.0-0.87); Eosinophils % 2.5 % (0.00-10.9); Hematocrit 34.1 VOL% (35.7-47.0); Immature Granulocytes % 1.2 %; Immature Granulocytes Absolute 0.17 #; Lymphocytes # 1.1 10*3/uL (1.4-4.0); Lymphocytes % 8.1 % (21.3-54.2); Mean Corpuscular HGB Conc 28.7 GM/DL (32-36); Mean Corpuscular Volume 79.1 FL (87-102); Mean Platelet Volume 9.8 FL (9.6-12.0); Neutrophils % 77.8 % (38.7-73.9); Platelet Count 594 T/CUMM (130-400); Red Blood Count 4.31 MC/CUMM (3.8-5.5); Red Cell Distribution Width 31.2 % (9.3-17.3); White Blood Count 14.2 T/CUMM (4-12)
[2019-06-23 05:42] LABS: Hemoglobin 9.8 GM/DL (12.0-16.0)
[2019-06-23 05:43] LABS: Hypochromasia 1+; Platelet Estimate Adequate
[2019-06-23 05:44] LABS: Microcytosis Slight
[2019-06-23 06:00] LABS: Osmolality,Calculated 287.4 MOS/KG (273-304)
[2019-06-23] MEDS: SODIUM CHLORIDE 0.9% 1,000 ML IV SCH ×2 (06:57→17:42)
[2019-06-23] MEDS: FONDAPARINUX 2.5 MG/0.5 ML SYRINGE SUBCUT SCH (09:56)
[2019-06-23] MEDS: PROMETHAZINE 25 MG/1 ML VIAL IM PRN ×2 (10:07→11:49)
[2019-06-23] MEDS: PANTOPRAZOLE 40 MG TABLET PO SCH ×3 (11:32→21:47)
[2019-06-23] MEDS: DOXYCYCLINE HYCLATE 100 MG CAPSULE PO SCH ×3 (11:32→21:47)
[2019-06-23] MEDS: sulfaSALAzine 500 MG TABLET PO SCH ×3 (11:33→21:47)
[2019-06-23] MEDS: PINDOLOL 5 MG TABLET PO SCH ×3 (11:37→21:45)
[2019-06-23] MEDS: POTASSIUM CHLORIDE 20 MEQ/15 ML UDCUP PO SCH (11:55)
[2019-06-23] MEDS: cefTRIAXone 2,000 MG in SODIUM CHLORIDE 0.9% 100 ML IV SCH (11:57)
[2019-06-23] MEDS: PROCHLORPERAZINE 5 MG TABLET PO SCH (20:59)
[2019-06-23] MEDS: SERTRALINE 25 MG TABLET PO SCH (21:45)
[2019-06-24] MEDS: SODIUM CHLORIDE 0.9% 1,000 ML IV SCH ×2 (03:08→17:47)
[2019-06-24] MEDS: MORPHINE 4 MG/1 ML VIAL IV PRN (05:02)
[2019-06-24] MEDS: ONDANSETRON 4 MG/2 ML VIAL IV PRN ×3 (07:15→21:01)
[2019-06-24] MEDS ORDERED: LACTATED RINGERS 1,000 ML IV SCH (08:00)
[2019-06-24 08:23] LABS: Basophils # 0.1 10*3/uL (0.0-0.2); Basophils % 0.4 % (0.0-0.8); Eosinophils # 0.3 10*3/uL (0.0-0.87); Eosinophils % 2.5 % (0.00-10.9); Hematocrit 34.2 VOL% (35.7-47.0); Hemoglobin 9.6 GM/DL (12.0-16.0); Immature Granulocytes Absolute 0.14 #; Lymphocytes # 1.9 10*3/uL (1.4-4.0); Lymphocytes % 13.5 % (21.3-54.2); Mean Corpuscular HGB Conc 28.1 GM/DL (32-36); Mean Corpuscular Volume 79.7 FL (87-102); Mean Platelet Volume 9.5 FL (9.6-12.0); Monocytes % 10.5 % (1.7-12.7); Neutrophils % 72.1 % (38.7-73.9); Platelet Count 586 T/CUMM (130-400); Red Blood Count 4.29 MC/CUMM (3.8-5.5); White Blood Count 13.8 T/CUMM (4-12)
[2019-06-24 08:52] LABS: Osmolality,Calculated 289.3 MOS/KG (273-304)
[2019-06-24] MEDS ORDERED: LIDOCAINE 100 MG/5 ML SYRINGE ONE (09:00)
[2019-06-24] MEDS ORDERED: PROPOFOL 200 MG/20 ML VIAL IV ONE (09:00)
[2019-06-24] MEDS: PANTOPRAZOLE 40 MG TABLET PO SCH ×2 (14:20→21:02)
[2019-06-24] MEDS: DOXYCYCLINE HYCLATE 100 MG CAPSULE PO SCH ×2 (14:20→21:01)
[2019-06-24] MEDS: sulfaSALAzine 500 MG TABLET PO SCH ×2 (14:20→21:02)
[2019-06-24] MEDS: PINDOLOL 5 MG TABLET PO SCH ×2 (14:20→21:02)
[2019-06-24] MEDS: PROCHLORPERAZINE 5 MG TABLET PO SCH ×2 (14:21→21:02)
[2019-06-24] MEDS: FONDAPARINUX 2.5 MG/0.5 ML SYRINGE SUBCUT SCH (14:21)
[2019-06-24] MEDS: POTASSIUM CHLORIDE 20 MEQ/15 ML UDCUP PO SCH (14:21)
[2019-06-24] MEDS: PROMETHAZINE 25 MG/1 ML VIAL IM PRN (14:33)
[2019-06-24] MEDS: ACYCLOVIR INJ 750 MG in SODIUM CHLORIDE 0.9% 250 ML IV SCH (17:48)
[2019-06-24] MEDS: SERTRALINE 25 MG TABLET PO SCH (21:02)
[2019-06-25] MEDS: MORPHINE 4 MG/1 ML VIAL IV PRN ×2 (04:56→18:04)
[2019-06-25] MEDS: ACYCLOVIR INJ 750 MG in SODIUM CHLORIDE 0.9% 250 ML IV SCH ×2 (04:59→16:43)
[2019-06-25 05:41] LABS: Calcium 8.5 MG/DL (8.5-10.1); Osmolality,Calculated 291.1 MOS/KG (273-304)
[2019-06-25 06:07] LABS: Basophils # 0.1 10*3/uL (0.0-0.2); Basophils % 0.4 % (0.0-0.8); Eosinophils # 0.3 10*3/uL (0.0-0.87); Eosinophils % 2.9 % (0.00-10.9); Hemoglobin 9.3 GM/DL (12.0-16.0); Immature Granulocytes % 0.8 %; Immature Granulocytes Absolute 0.09 #; Lymphocytes # 2.1 10*3/uL (1.4-4.0); Lymphocytes % 18.4 % (21.3-54.2); Mean Corpuscular HGB Conc 29.1 GM/DL (32-36); Mean Platelet Volume 10.1 FL (9.6-12.0); Monocytes % 10.7 % (1.7-12.7); Neutrophils % 66.8 % (38.7-73.9); Platelet Count 555 T/CUMM (130-400); White Blood Count 11.6 T/CUMM (4-12)
[2019-06-25] MEDS: ONDANSETRON 4 MG/2 ML VIAL IV PRN ×3 (06:09→22:36)
[2019-06-25 06:17] LABS: Anisocytosis 2+; Hypochromasia 2+; Microcytosis 2+; Ovalocytes 1+; Platelet Estimate Increased; Smudge Cells 1+; Target Cells 1+
[2019-06-25] MEDS: SODIUM CHLORIDE 0.9% 1,000 ML IV SCH (06:21)
[2019-06-25] MEDS: FONDAPARINUX 2.5 MG/0.5 ML SYRINGE SUBCUT SCH (09:36)
[2019-06-25] MEDS: POTASSIUM CHLORIDE 20 MEQ/15 ML UDCUP PO SCH (09:38)
[2019-06-25] MEDS: DEXTROSE 5% NACL 0.45% 1,000 ML IV SCH (14:13)
[2019-06-25] MEDS: PANTOPRAZOLE 40 MG TABLET PO SCH ×2 (14:14→20:52)
[2019-06-25] MEDS: PROCHLORPERAZINE 5 MG TABLET PO SCH ×2 (14:14→20:52)
[2019-06-25] MEDS: sulfaSALAzine 500 MG TABLET PO SCH ×2 (14:14→20:52)
[2019-06-25] MEDS: PINDOLOL 5 MG TABLET PO SCH ×2 (14:14→20:52)
[2019-06-25] MEDS: DOXYCYCLINE HYCLATE 100 MG CAPSULE PO SCH ×2 (14:14→20:52)
[2019-06-25] MEDS: SERTRALINE 25 MG TABLET PO SCH (20:52)
[2019-06-26] MEDS: DEXTROSE 5% NACL 0.45% 1,000 ML IV SCH ×3 (01:05→20:26)
[2019-06-26] MEDS: ACYCLOVIR INJ 750 MG in SODIUM CHLORIDE 0.9% 250 ML IV SCH (04:52)
[2019-06-26] MEDS: MORPHINE 4 MG/1 ML VIAL IV PRN (05:23)
[2019-06-26] MEDS: ONDANSETRON 4 MG/2 ML VIAL IV PRN ×3 (06:25→18:03)
[2019-06-26 07:00] LABS: Basophils # 0.1 10*3/uL (0.0-0.2); Basophils % 0.7 % (0.0-0.8); Eosinophils # 0.2 10*3/uL (0.0-0.87); Eosinophils % 2.4 % (0.00-10.9); Hematocrit 31.1 VOL% (35.7-47.0); Hemoglobin 9.3 GM/DL (12.0-16.0); Immature Granulocytes % 0.5 %; Immature Granulocytes Absolute 0.05 #; Lymphocytes # 1.8 10*3/uL (1.4-4.0); Lymphocytes % 18.6 % (21.3-54.2); Mean Corpuscular HGB Conc 29.9 GM/DL (32-36); Mean Corpuscular Volume 78.9 FL (87-102); Mean Platelet Volume 9.5 FL (9.6-12.0); Monocytes % 9.9 % (1.7-12.7); Neutrophils % 67.9 % (38.7-73.9); Platelet Count 501 T/CUMM (130-400); Red Blood Count 3.94 MC/CUMM (3.8-5.5); White Blood Count 9.6 T/CUMM (4-12)
[2019-06-26 07:16] LABS: Calcium 8.5 MG/DL (8.5-10.1); Osmolality,Calculated 289.3 MOS/KG (273-304)
[2019-06-26 07:37] LABS: Anisocytosis 1+; Hypochromasia 1+; Microcytosis 1+
[2019-06-26 07:38] LABS: Platelet Estimate Increased
[2019-06-26] MEDS: POTASSIUM CHLORIDE RIDER 10 MEQ in PREMIX 1 EACH IV PRN ×3 (08:34→11:22)
[2019-06-26] MEDS: FONDAPARINUX 2.5 MG/0.5 ML SYRINGE SUBCUT SCH (08:34)
[2019-06-26] MEDS ORDERED: ZINC OXIDE PASTE 113 GM TUBE TOP PRN (10:40)
[2019-06-26] MEDS: SODIUM CHLORIDE 0.9% 1,000 ML IV SCH (12:25)
[2019-06-26] MEDS: ACYCLOVIR 200 MG CAPSULE PO SCH ×3 (13:50→20:22)
[2019-06-26] MEDS: PROCHLORPERAZINE 5 MG TABLET PO SCH ×2 (15:08→20:21)
[2019-06-26] MEDS: DOXYCYCLINE HYCLATE 100 MG CAPSULE PO SCH ×2 (15:08→20:22)
[2019-06-26] MEDS: PINDOLOL 5 MG TABLET PO SCH ×2 (15:08→20:23)
[2019-06-26] MEDS: PANTOPRAZOLE 40 MG TABLET PO SCH ×2 (15:08→20:23)
[2019-06-26] MEDS: sulfaSALAzine 500 MG TABLET PO SCH ×2 (15:08→20:20)
[2019-06-26] MEDS: POTASSIUM CHLORIDE 20 MEQ/15 ML UDCUP PO SCH (15:09)
[2019-06-26] MEDS: SERTRALINE 25 MG TABLET PO SCH (20:23)
[2019-06-27] MEDS: ONDANSETRON 4 MG/2 ML VIAL IV PRN ×2 (04:00→12:43)
[2019-06-27] MEDS: DEXTROSE 5% NACL 0.45% 1,000 ML IV SCH (05:00)
[2019-06-27] MEDS: MORPHINE 4 MG/1 ML VIAL IV PRN (07:05)
[2019-06-27] MEDS: POTASSIUM CHLORIDE 20 MEQ/15 ML UDCUP PO SCH (08:15)
[2019-06-27] MEDS: PROCHLORPERAZINE 5 MG TABLET PO SCH ×2 (08:16→21:14)
[2019-06-27] MEDS: sulfaSALAzine 500 MG TABLET PO SCH ×2 (08:16→21:13)
[2019-06-27] MEDS: DOXYCYCLINE HYCLATE 100 MG CAPSULE PO SCH ×2 (08:16→21:13)
[2019-06-27] MEDS: PANTOPRAZOLE 40 MG TABLET PO SCH ×2 (08:16→21:14)
[2019-06-27] MEDS: PINDOLOL 5 MG TABLET PO SCH ×2 (08:16→21:14)
[2019-06-27] MEDS: FONDAPARINUX 2.5 MG/0.5 ML SYRINGE SUBCUT SCH (08:17)
[2019-06-27] MEDS: ACYCLOVIR 200 MG CAPSULE PO SCH ×3 (08:18→15:24)
[2019-06-27 08:28] LABS: Calcium 8.7 MG/DL (8.5-10.1); Osmolality,Calculated 291.1 MOS/KG (273-304)
[2019-06-27] MEDS ORDERED: POTASSIUM CHLORIDE INJ 50 MEQ, MAGNESIUM SULF INJ 4 GM in SODIUM CHLORIDE 0.9% 500 ML IV ONE (10:30)
[2019-06-27] MEDS: DEXT 5% LACT RING KCL 20 MEQ 20 MEQ/1,000 ML BAG IV SCH ×2 (10:54→21:15)
[2019-06-27] MEDS ORDERED: hydrALAZINE 20 MG/1 ML VIAL IV PRN (12:36)
[2019-06-27 16:10] LABS: Calcium 8.9 MG/DL (8.5-10.1); Osmolality,Calculated 291.1 MOS/KG (273-304)
[2019-06-27] MEDS: SERTRALINE 25 MG TABLET PO SCH (21:13)
[2019-06-27] MEDS: PROMETHAZINE 25 MG/1 ML VIAL IM PRN (21:39)
[2019-06-28] MEDS: ACYCLOVIR INJ 750 MG in SODIUM CHLORIDE 0.9% 250 ML IV SCH (03:32)
[2019-06-28] MEDS: DEXT 5% LACT RING KCL 20 MEQ 20 MEQ/1,000 ML BAG IV SCH (05:04)
[2019-06-28 05:21] LABS: Basophils # 0.1 10*3/uL (0.0-0.2); Eosinophils # 0.2 10*3/uL (0.0-0.87); Eosinophils % 2.7 % (0.00-10.9); Hematocrit 32.9 VOL% (35.7-47.0); Hemoglobin 9.7 GM/DL (12.0-16.0); Immature Granulocytes % 0.4 %; Immature Granulocytes Absolute 0.03 #; Lymphocytes # 1.8 10*3/uL (1.4-4.0); Lymphocytes % 22.6 % (21.3-54.2); Mean Corpuscular HGB Conc 29.5 GM/DL (32-36); Mean Corpuscular Volume 79.1 FL (87-102); Mean Platelet Volume 9.8 FL (9.6-12.0); Monocytes % 11.1 % (1.7-12.7); Neutrophils % 62.2 % (38.7-73.9); Platelet Count 460 T/CUMM (130-400); Red Blood Count 4.16 MC/CUMM (3.8-5.5); White Blood Count 7.9 T/CUMM (4-12)
[2019-06-28 05:41] LABS: Calcium 8.7 MG/DL (8.5-10.1); Osmolality,Calculated 288.4 MOS/KG (273-304)
[2019-06-28 05:47] LABS: Platelet Estimate Normal; Polychromasia Few
[2019-06-28] MEDS: POTASSIUM CHLORIDE RIDER 10 MEQ in PREMIX 1 EACH IV PRN ×3 (06:03→13:06)
[2019-06-28] MEDS: DOXYCYCLINE HYCLATE 100 MG CAPSULE PO SCH ×2 (09:37→21:23)
[2019-06-28] MEDS: PANTOPRAZOLE 40 MG TABLET PO SCH ×2 (09:37→21:24)
[2019-06-28] MEDS: PROCHLORPERAZINE 5 MG TABLET PO SCH ×2 (09:38→21:23)
[2019-06-28] MEDS: FONDAPARINUX 2.5 MG/0.5 ML SYRINGE SUBCUT SCH (09:38)
[2019-06-28] MEDS: sulfaSALAzine 500 MG TABLET PO SCH ×2 (09:38→21:22)
[2019-06-28] MEDS: PINDOLOL 5 MG TABLET PO SCH ×2 (09:41→21:24)
[2019-06-28] MEDS: POTASSIUM CHLORIDE 20 MEQ/15 ML UDCUP PO SCH ×2 (09:44→13:36)
[2019-06-28] MEDS: ONDANSETRON 4 MG/2 ML VIAL IV PRN (11:05)
[2019-06-28] MEDS: SERTRALINE 25 MG TABLET PO SCH (21:24)
[2019-06-29] MEDS: DEXT 5% LACT RING KCL 20 MEQ 20 MEQ/1,000 ML BAG IV SCH ×3 (01:37→11:23)
[2019-06-29 08:24] LABS: Calcium 8.6 MG/DL (8.5-10.1); Osmolality,Calculated 284.7 MOS/KG (273-304)
[2019-06-29] MEDS: PROCHLORPERAZINE 5 MG TABLET PO SCH (09:01)
[2019-06-29] MEDS: PANTOPRAZOLE 40 MG TABLET PO SCH (09:01)
[2019-06-29] MEDS: PINDOLOL 5 MG TABLET PO SCH (09:01)
[2019-06-29] MEDS: DOXYCYCLINE HYCLATE 100 MG CAPSULE PO SCH (09:03)
[2019-06-29] MEDS: sulfaSALAzine 500 MG TABLET PO SCH (09:03)
[2019-06-29] MEDS: POTASSIUM CHLORIDE 20 MEQ/15 ML UDCUP PO SCH (09:04)
[2019-06-29] MEDS: FONDAPARINUX 2.5 MG/0.5 ML SYRINGE SUBCUT SCH (09:04)
[2019-06-29] MEDS: POTASSIUM CHLORIDE RIDER 10 MEQ in PREMIX 1 EACH IV PRN ×3 (09:08→14:45)
[2019-06-29] MEDS: MORPHINE 4 MG/1 ML VIAL IV PRN (11:20)
[2019-06-29 12:00] VITALS: BP 159/101
== END 2019-06-29 17:05 | disposition home health service (06) | DRG 558 ==
LOC: N.ED 16:48 → SUATTDRO 19:48 → N.EDINP 19:48 → N.CC 20:35 → N.2E 06-17 15:15
PROVIDERS: ADMIT Internal Medicine

== ENCOUNTER 2020-06-21 19:41 | Inpatient (IN) ==
[2020-06-21] MEDS ORDERED: PANTOPRAZOLE 40 MG VIAL IV STA (23:27)
[2020-06-21] MEDS ORDERED: HYDROmorphone 2 MG/1 ML VIAL IV STA (23:27)
[2020-06-21] MEDS ORDERED: ONDANSETRON 4 MG/2 ML VIAL IV STA (23:27)
[2020-06-21] MEDS ORDERED: SODIUM CHLORIDE 0.9% 1,000 ML IV STA (23:27)
[2020-06-22 00:48] LABS: Basophils # 0.1 10*3/uL (0.0-0.2); Basophils % 0.4 % (0.0-0.8); Eosinophils # 0.2 10*3/uL (0.0-0.87); Eosinophils % 0.9 % (0.00-10.9); Hematocrit 29.4 VOL% (35.7-47.0); Hemoglobin 9.3 GM/DL (12.0-16.0); Immature Granulocytes % 0.9 %; Immature Granulocytes Absolute 0.16 #; Lymphocytes # 1.5 10*3/uL (1.4-4.0); Lymphocytes % 8.7 % (21.3-54.2); Mean Corpuscular HGB Conc 31.6 GM/DL (32-36); Mean Corpuscular Volume 86.2 FL (87-102); Monocytes % 11.5 % (1.7-12.7); NRBC # 0.02 10*3/uL; Neutrophils % 77.6 % (38.7-73.9); Platelet Count 641 T/CUMM (130-400); Red Blood Count 3.41 MC/CUMM (3.8-5.5); Red Cell Distribution Width 14.9 % (9.3-17.3); White Blood Count 17.4 T/CUMM (4-12)
[2020-06-22 00:50] LABS: Alanine Aminotransferase 19 U/L (13-56); Albumin 3.2 G/DL (3.4-5.0); Alkaline Phosphatase 80 U/L (45-117); Amylase 16 U/L (25-115); Aspartate Amino Transferase 13 U/L (0-37); Beta HCG Titer < 1.00 mIU/ml (1-3); Bilirubin,Total < 0.39 MG/DL (0.2-1.0); Blood Urea Nitrogen 8 MG/DL (7-18); Calcium 8.5 MG/DL (8.5-10.1); Estimated Glom Filtration Rate 136 ML/MIN; Glucose 106 MG/DL (74-106); Osmolality,Calculated 259.7 MOS/KG (273-304)
[2020-06-22] MEDS ORDERED: PROMETHAZINE 25 MG/1 ML VIAL IM PRN (02:20)
[2020-06-22] MEDS ORDERED: diphenhydrAMINE CAP 25 MG CAPSULE PO PRN (02:20)
[2020-06-22] MEDS ORDERED: SIMETHICONE CHEW 125 MG TABLET PO PRN (02:20)
[2020-06-22] MEDS ORDERED: ACETAMINOPHEN 325 MG TABLET PO PRN (02:20)
[2020-06-22] MEDS ORDERED: NICOTINE 21 MG/24 HR PATCH TRANSDERM PRN (02:20)
[2020-06-22] MEDS ORDERED: ZALEPLON 5 MG CAPSULE PO PRN (02:20)
[2020-06-22] MEDS ORDERED: DEXTROSE 50% 25 GM/50 ML VIAL IV PRN (02:20)
[2020-06-22] MEDS ORDERED: GLUCAGON 1 MG VIAL IM PRN (02:20)
[2020-06-22] MEDS ORDERED: hydrALAZINE 20 MG/1 ML VIAL IV PRN (02:20)
[2020-06-22] MEDS ORDERED: guaiFENesin/DM ER 600-30 MG TABLET PO PRN (02:20)
[2020-06-22] MEDS: cefTRIAXone 1,000 MG in SYRINGE 1 EACH IV SCH (02:55)
[2020-06-22 03:39] LABS: Bilirubin,Urine Negative (Negative); Blood, Urine Negative (Negative); Glucose,Urine (UA) Negative (Negative); Ketones,Urine 20 mg/dL (Negative); Mucus,Urine Occasional /LPF (Occasional); Nitrite,Urine Negative (Negative); Protein,Urine Negative; RBC,Urine 3 /HPF (0-4); Squamous Epithelial Cell,Urine Occasional /HPF (0-10); Urine Appearance CLEAR (Clear); Urine Color Straw (Yellow); Urine Specific Gravity > 1.060 (1.001-1.035); Urine Urobilinogen < 2.0 EU/DL (0.2-1.0)
[2020-06-22] MEDS: SODIUM CHLOR 0.9% KCL 20 MEQ 20 MEQ/1,000 ML BAG IV SCH ×3 (03:55→23:06)
[2020-06-22] MEDS: MORPHINE 4 MG/1 ML VIAL IV PRN ×3 (04:38→23:03)
[2020-06-22] MEDS: ONDANSETRON 4 MG/2 ML VIAL IV PRN ×3 (04:39→22:54)
[2020-06-22] MEDS: metroNIDAZOLE INJ 500 MG in PREMIX 1 EACH IV SCH ×3 (05:15→17:33)
[2020-06-22 06:14] LABS: Basophils # 0.1 10*3/uL (0.0-0.2); Basophils % 0.3 % (0.0-0.8); Eosinophils # 0.2 10*3/uL (0.0-0.87); Eosinophils % 0.8 % (0.00-10.9); Hematocrit 24.9 VOL% (35.7-47.0); Immature Granulocytes % 0.8 %; Immature Granulocytes Absolute 0.14 #; Lymphocytes # 2.6 10*3/uL (1.4-4.0); Lymphocytes % 14.5 % (21.3-54.2); Mean Corpuscular HGB Conc 30.9 GM/DL (32-36); Mean Corpuscular Volume 86.8 FL (87-102); Mean Platelet Volume 10.2 FL (9.6-12.0); NRBC # 0.02 10*3/uL; Neutrophils % 69.6 % (38.7-73.9); Platelet Count 521 T/CUMM (130-400); Red Blood Count 2.87 MC/CUMM (3.8-5.5); White Blood Count 17.8 T/CUMM (4-12)
[2020-06-22 06:15] LABS: Hemoglobin 7.7 GM/DL (12.0-16.0)
[2020-06-22 06:30] LABS: Calcium 8.1 MG/DL (8.5-10.1); Osmolality,Calculated 267.1 MOS/KG (273-304)
[2020-06-22 06:32] LABS: Band Neutrophils 5 % (0-10); Eosinophils 2 % (0-10); Hypochromasia 2+; Lymphocytes 13 % (20-55); Platelet Estimate Adequate; Segmented Neutrophils 70 % (50-85); Total Cells Counted 100
[2020-06-22] MEDS ORDERED: predniSONE 20 MG TABLET PO SCH (09:00)
[2020-06-22] MEDS: PANTOPRAZOLE 40 MG VIAL IV SCH ×2 (09:15→21:52)
[2020-06-22] MEDS: predniSONE 20 MG TABLET PO SCH (09:15)
[2020-06-22] MEDS ORDERED: methylPREDNISolone SOD SUC 40 MG/1 ML VIAL IV SCH (11:00)
[2020-06-22] MEDS: methylPREDNISolone SOD SUC 40 MG/1 ML VIAL IV SCH (17:13)
[2020-06-23] MEDS: methylPREDNISolone SOD SUC 40 MG/1 ML VIAL IV SCH ×3 (01:37→17:08)
[2020-06-23] MEDS: cefTRIAXone 1,000 MG in SYRINGE 1 EACH IV SCH (01:37)
[2020-06-23] MEDS: metroNIDAZOLE INJ 500 MG in PREMIX 1 EACH IV SCH ×3 (01:42→17:42)
[2020-06-23] MEDS: PANTOPRAZOLE 40 MG VIAL IV SCH ×2 (09:43→21:19)
[2020-06-23] MEDS ORDERED: predniSONE 20 MG TABLET PO SCH (09:55)
[2020-06-23] MEDS: SODIUM CHLOR 0.9% KCL 20 MEQ 20 MEQ/1,000 ML BAG IV SCH ×2 (10:00→22:40)
[2020-06-23] MEDS: predniSONE 20 MG TABLET PO SCH (10:35)
[2020-06-23 12:16] LABS: Basophils % 0.1 % (0.0-0.8); Hematocrit 24.2 VOL% (35.7-47.0); Hemoglobin 7.5 GM/DL (12.0-16.0); Immature Granulocytes % 2.3 %; Immature Granulocytes Absolute 0.39 #; Lymphocytes # 1.2 10*3/uL (1.4-4.0); Lymphocytes % 6.9 % (21.3-54.2); Mean Corpuscular Volume 88.3 FL (87-102); Mean Platelet Volume 9.8 FL (9.6-12.0); Monocytes % 6.2 % (1.7-12.7); NRBC # 0.03 10*3/uL; Neutrophils % 84.5 % (38.7-73.9); Platelet Count 590 T/CUMM (130-400); Red Blood Count 2.74 MC/CUMM (3.8-5.5); Red Cell Distribution Width 14.9 % (9.3-17.3); White Blood Count 17.3 T/CUMM (4-12)
[2020-06-23] MEDS: MORPHINE 4 MG/1 ML VIAL IV PRN ×2 (17:07→21:16)
[2020-06-23] MEDS: MESALAMINE 800 MG TABLET PO SCH ×2 (17:12→21:21)
[2020-06-23] MEDS: ONDANSETRON 4 MG/2 ML VIAL IV PRN (21:14)
[2020-06-24] MEDS: methylPREDNISolone SOD SUC 40 MG/1 ML VIAL IV SCH ×3 (02:28→17:23)
[2020-06-24] MEDS: cefTRIAXone 1,000 MG in SYRINGE 1 EACH IV SCH (02:28)
[2020-06-24] MEDS: metroNIDAZOLE INJ 500 MG in PREMIX 1 EACH IV SCH ×3 (02:31→20:07)
[2020-06-24 05:34] LABS: Basophils % 0.2 % (0.0-0.8); Hematocrit 22.7 VOL% (35.7-47.0); Immature Granulocytes % 3.8 %; Immature Granulocytes Absolute 0.67 #; Lymphocytes % 5.8 % (21.3-54.2); Mean Corpuscular HGB Conc 30.8 GM/DL (32-36); Mean Corpuscular Volume 86.6 FL (87-102); Mean Platelet Volume 10.1 FL (9.6-12.0); Monocytes % 6.5 % (1.7-12.7); NRBC # 0.04 10*3/uL; Neutrophils % 83.7 % (38.7-73.9); Platelet Count 547 T/CUMM (130-400); Red Blood Count 2.62 MC/CUMM (3.8-5.5); Red Cell Distribution Width 15.1 % (9.3-17.3); White Blood Count 17.6 T/CUMM (4-12)
[2020-06-24 06:08] LABS: Calcium 8.6 MG/DL (8.5-10.1); Osmolality,Calculated 278.5 MOS/KG (273-304)
[2020-06-24 06:37] LABS: Band Neutrophils 1 % (0-10); Hypochromasia 1+; Lymphocytes 3 % (20-55); Metamyelocytes 1 %; Myelocytes 1 %; Segmented Neutrophils 87 % (50-85); Total Cells Counted 100
[2020-06-24 06:38] LABS: Microcytosis Slight; Platelet Estimate Increased; Polychromasia Slight
[2020-06-24] MEDS: PANTOPRAZOLE 40 MG VIAL IV SCH ×2 (10:03→20:46)
[2020-06-24] MEDS: MESALAMINE 800 MG TABLET PO SCH ×3 (10:04→21:25)
[2020-06-24] MEDS: ONDANSETRON 4 MG/2 ML VIAL IV PRN ×2 (10:34→20:42)
[2020-06-24] MEDS ORDERED: SODIUM CHLORIDE 0.9% 1,000 ML IV PRN ×2 (11:52→14:04)
[2020-06-25] MEDS: MORPHINE 4 MG/1 ML VIAL IV PRN ×2 (00:45→21:38)
[2020-06-25] MEDS: methylPREDNISolone SOD SUC 40 MG/1 ML VIAL IV SCH ×3 (01:39→18:00)
[2020-06-25] MEDS: cefTRIAXone 1,000 MG in SYRINGE 1 EACH IV SCH (01:39)
[2020-06-25] MEDS: metroNIDAZOLE INJ 500 MG in PREMIX 1 EACH IV SCH ×3 (01:44→19:04)
[2020-06-25] MEDS: SODIUM CHLOR 0.9% KCL 20 MEQ 20 MEQ/1,000 ML BAG IV SCH ×6 (01:44→21:42)
[2020-06-25 08:11] LABS: Basophils # 0.1 10*3/uL (0.0-0.2); Basophils % 0.4 % (0.0-0.8); Hematocrit 31.1 VOL% (35.7-47.0); Hemoglobin 9.8 GM/DL (12.0-16.0); Immature Granulocytes % 6.6 %; Immature Granulocytes Absolute 0.97 #; Lymphocytes # 1.5 10*3/uL (1.4-4.0); Lymphocytes % 10.4 % (21.3-54.2); Mean Corpuscular HGB Conc 31.5 GM/DL (32-36); Mean Corpuscular Volume 86.4 FL (87-102); Mean Platelet Volume 10.1 FL (9.6-12.0); Monocytes % 5.3 % (1.7-12.7); NRBC # 0.13 10*3/uL; Neutrophils % 77.3 % (38.7-73.9); Platelet Count 594 T/CUMM (130-400); Red Cell Distribution Width 15.4 % (9.3-17.3); White Blood Count 14.7 T/CUMM (4-12)
[2020-06-25 09:13] LABS: Anisocytosis 1+; Band Neutrophils 18 % (0-10); Lymphocytes 15 % (20-55); Metamyelocytes 1 %; Myelocytes 1 %; Nucleated Red Blood Cells 2 (0-5); Platelet Estimate Increased; Segmented Neutrophils 60 % (50-85); Total Cells Counted 100
[2020-06-25] MEDS: MESALAMINE 800 MG TABLET PO SCH ×3 (09:41→21:34)
[2020-06-25] MEDS: PANTOPRAZOLE 40 MG VIAL IV SCH ×2 (09:42→21:37)
[2020-06-25] MEDS: ONDANSETRON 4 MG/2 ML VIAL IV PRN (09:53)
[2020-06-26] MEDS: methylPREDNISolone SOD SUC 40 MG/1 ML VIAL IV SCH ×2 (02:24→08:55)
[2020-06-26] MEDS: cefTRIAXone 1,000 MG in SYRINGE 1 EACH IV SCH (02:31)
[2020-06-26] MEDS: metroNIDAZOLE INJ 500 MG in PREMIX 1 EACH IV SCH ×2 (02:31→11:00)
[2020-06-26 05:23] LABS: Basophils # 0.1 10*3/uL (0.0-0.2); Basophils % 0.4 % (0.0-0.8); Hematocrit 31.1 VOL% (35.7-47.0); Hemoglobin 9.7 GM/DL (12.0-16.0); Immature Granulocytes % 5.7 %; Immature Granulocytes Absolute 0.91 #; Lymphocytes # 1.5 10*3/uL (1.4-4.0); Lymphocytes % 9.4 % (21.3-54.2); Mean Corpuscular HGB Conc 31.2 GM/DL (32-36); Mean Corpuscular Volume 86.4 FL (87-102); Mean Platelet Volume 9.9 FL (9.6-12.0); Monocytes % 8.9 % (1.7-12.7); NRBC # 0.11 10*3/uL; Neutrophils % 75.6 % (38.7-73.9); Platelet Count 575 T/CUMM (130-400); Red Cell Distribution Width 15.5 % (9.3-17.3)
[2020-06-26 05:40] LABS: Calcium 8.6 MG/DL (8.5-10.1); Osmolality,Calculated 277.5 MOS/KG (273-304)
[2020-06-26 05:40] LABS: Calcium 8.6 MG/DL (8.5-10.1); Osmolality,Calculated 278.5 MOS/KG (273-304)
[2020-06-26 06:13] LABS: Band Neutrophils 1 % (0-10); Hypochromasia 2+; Lymphocytes 11 % (20-55); Metamyelocytes 3 %; Nucleated Red Blood Cells 2 (0-5); Platelet Estimate Increased; Segmented Neutrophils 77 % (50-85); Total Cells Counted 100
[2020-06-26] MEDS: SODIUM CHLOR 0.9% KCL 20 MEQ 20 MEQ/1,000 ML BAG IV SCH (06:13)
[2020-06-26 08:44] VITALS: BP 140/76
[2020-06-26] MEDS: MESALAMINE 800 MG TABLET PO SCH ×2 (08:54→09:43)
[2020-06-26] MEDS: PANTOPRAZOLE 40 MG VIAL IV SCH (08:55)
[2020-06-26] MEDS: ONDANSETRON 4 MG/2 ML VIAL IV PRN (08:55)
[2020-06-26] MEDS ORDERED: metroNIDAZOLE 500 MG TABLET PO SCH (15:00)
[2020-06-26] MEDS ORDERED: CIPROFLOXACIN 500 MG TABLET PO SCH (21:00)
== END 2020-06-26 12:06 | disposition home or self-care (01) | DRG 386 ==
LOC: N.ED 19:41 → N.EDINP 06-22 02:20 → SUATTDRO 06-22 02:20 → N.EDINP 06-22 03:30 → N.TELES 06-22 03:47
PROVIDERS: ADMIT Internal Medicine; ATTEND Internal Medicine

== ENCOUNTER 2020-07-17 13:06 | Observation (INO) ==
[2020-07-17 14:29] LABS: Basophils # 0.1 10*3/uL (0.0-0.2); Basophils % 0.3 % (0.0-0.8); Eosinophils # 0.4 10*3/uL (0.0-0.87); Eosinophils % 2.9 % (0.00-10.9); Hemoglobin 9.4 GM/DL (12.0-16.0); Immature Granulocytes % 0.7 %; Immature Granulocytes Absolute 0.11 #; Lymphocytes # 3.1 10*3/uL (1.4-4.0); Lymphocytes % 20.7 % (21.3-54.2); Mean Corpuscular HGB Conc 30.3 GM/DL (32-36); Mean Corpuscular Volume 86.1 FL (87-102); Mean Platelet Volume 8.8 FL (9.6-12.0); Monocytes % 8.2 % (1.7-12.7); Neutrophils % 67.2 % (38.7-73.9); Platelet Count 597 T/CUMM (130-400); Red Cell Distribution Width 15.4 % (9.3-17.3); White Blood Count 15.1 T/CUMM (4-12)
[2020-07-17 14:55] LABS: Alanine Aminotransferase 139 U/L (13-56); Alkaline Phosphatase 112 U/L (45-117); Aspartate Amino Transferase 35 U/L (0-37); Bilirubin,Total < 0.39 MG/DL (0.2-1.0); Blood Urea Nitrogen 11 MG/DL (7-18); Calcium 9.2 MG/DL (8.5-10.1); Estimated Glom Filtration Rate 137 ML/MIN; Glucose 88 MG/DL (74-106); Osmolality,Calculated 276.4 MOS/KG (273-304); Total Protein 8.7 G/DL (6.4-8.3)
[2020-07-17] MEDS ORDERED: MORPHINE 4 MG/1 ML VIAL IV STA (14:56)
[2020-07-17] MEDS ORDERED: ONDANSETRON 4 MG/2 ML VIAL IV STA (14:57)
[2020-07-17] MEDS ORDERED: SODIUM CHLORIDE 0.9% 1,000 ML IV STA (15:05)
[2020-07-17] MEDS ORDERED: CLINDAMYCIN INJ 900 MG in PREMIX 1 EACH IV STA (15:06)
[2020-07-17] MEDS ORDERED: BISACODYL 5 MG TABLET PO PRN (15:24)
[2020-07-17] MEDS ORDERED: ALBUTEROL/IPRATROPIUM 3 ML NEB RESP TX PRN (15:24)
[2020-07-17] MEDS ORDERED: POTASSIUM CHLORIDE 20 MEQ TABLET PO STA (15:37)
[2020-07-17] MEDS ORDERED: HYDROmorphone 2 MG/1 ML VIAL IV STA (15:59)
[2020-07-17] MEDS: ONDANSETRON 4 MG/2 ML VIAL IV PRN ×2 (16:20→22:16)
[2020-07-17] MEDS: LACTATED RINGERS 1,000 ML IV SCH (16:45)
[2020-07-17] MEDS: PIPERACILLIN/TAZOBACTAM 3,375 MG in SODIUM CHLORIDE 0.9% 100 ML IV SCH ×2 (16:46→23:45)
[2020-07-17] MEDS: HYDROmorphone 2 MG/1 ML VIAL IV PRN (22:16)
[2020-07-18 01:07] LABS: Calcium 8.6 MG/DL (8.5-10.1); Osmolality,Calculated 274.5 MOS/KG (273-304)
[2020-07-18 01:10] LABS: Basophils # 0.1 10*3/uL (0.0-0.2); Basophils % 0.3 % (0.0-0.8); Eosinophils # 0.5 10*3/uL (0.0-0.87); Eosinophils % 3.2 % (0.00-10.9); Hematocrit 26.2 VOL% (35.7-47.0); Immature Granulocytes % 1.3 %; Immature Granulocytes Absolute 0.22 #; Lymphocytes # 2.4 10*3/uL (1.4-4.0); Lymphocytes % 14.5 % (21.3-54.2); Mean Corpuscular HGB Conc 30.5 GM/DL (32-36); Mean Corpuscular Volume 84.8 FL (87-102); Mean Platelet Volume 8.9 FL (9.6-12.0); Monocytes % 7.7 % (1.7-12.7); Platelet Count 483 T/CUMM (130-400); Red Blood Count 3.09 MC/CUMM (3.8-5.5); Red Cell Distribution Width 15.6 % (9.3-17.3); White Blood Count 16.5 T/CUMM (4-12)
[2020-07-18] MEDS: ACETAMINOPHEN 325 MG TABLET PO PRN (03:09)
[2020-07-18] MEDS: HYDROmorphone 2 MG/1 ML VIAL IV PRN ×7 (03:10→22:25)
[2020-07-18] MEDS: ONDANSETRON 4 MG/2 ML VIAL IV PRN ×4 (08:38→22:22)
[2020-07-18] MEDS: LACTATED RINGERS 1,000 ML IV SCH ×3 (08:49→16:32)
[2020-07-18] MEDS: PANTOPRAZOLE 40 MG TABLET PO SCH (08:53)
[2020-07-18] MEDS: predniSONE 20 MG TABLET PO SCH (08:53)
[2020-07-18] MEDS: PIPERACILLIN/TAZOBACTAM 3,375 MG in SODIUM CHLORIDE 0.9% 100 ML IV SCH ×2 (08:54→16:31)
[2020-07-18] MEDS ORDERED: LIDOCAINE 1% 20 ML VIAL ONE (09:10)
[2020-07-18] MEDS ORDERED: BUPIVACAINE MPF 0.25% 30 ML VIAL ONE (09:10)
[2020-07-18] MEDS ORDERED: propofoL 200 MG/20 ML VIAL IV ONE (09:35)
[2020-07-18] MEDS ORDERED: fentaNYL 100 MCG/2 ML VIAL ONE (09:35)
[2020-07-18] MEDS ORDERED: LIDOCAINE 2% 5 ML VIAL ONE (09:35)
[2020-07-18] MEDS ORDERED: MIDAZOLAM 2 MG/2 ML VIAL ONE (09:36)
[2020-07-18] MEDS ORDERED: SODIUM CHLORIDE 0.9% 100 ML IV ONE (09:36)
[2020-07-18] MEDS ORDERED: HYDROmorphone 2 MG/1 ML VIAL ONE (09:41)
[2020-07-18] MEDS ORDERED: ONDANSETRON 4 MG/2 ML VIAL IV PRN (09:42)
[2020-07-18] MEDS ORDERED: ONDANSETRON 4 MG/2 ML VIAL ONE (09:42)
[2020-07-19] MEDS: PIPERACILLIN/TAZOBACTAM 3,375 MG in SODIUM CHLORIDE 0.9% 100 ML IV SCH ×3 (00:22→15:59)
[2020-07-19] MEDS: ACETAMINOPHEN 325 MG TABLET PO PRN (00:23)
[2020-07-19] MEDS ORDERED: KETOROLAC 30 MG/1 ML VIAL IV ONE (02:08)
[2020-07-19] MEDS ORDERED: LACTATED RINGERS 1,000 ML IV ONE (02:13)
[2020-07-19 05:40] LABS: Basophils # 0.1 10*3/uL (0.0-0.2); Basophils % 0.4 % (0.0-0.8); Eosinophils # 0.5 10*3/uL (0.0-0.87); Eosinophils % 3.4 % (0.00-10.9); Hematocrit 25.7 VOL% (35.7-47.0); Hemoglobin 7.9 GM/DL (12.0-16.0); Immature Granulocytes % 0.5 %; Immature Granulocytes Absolute 0.07 #; Lymphocytes # 2.5 10*3/uL (1.4-4.0); Mean Corpuscular HGB Conc 30.7 GM/DL (32-36); Mean Platelet Volume 9.1 FL (9.6-12.0); Monocytes % 7.5 % (1.7-12.7); Neutrophils % 70.2 % (38.7-73.9); Platelet Count 500 T/CUMM (130-400); Red Blood Count 3.06 MC/CUMM (3.8-5.5); Red Cell Distribution Width 15.3 % (9.3-17.3); White Blood Count 13.9 T/CUMM (4-12)
[2020-07-19 06:06] LABS: Osmolality,Calculated 266.2 MOS/KG (273-304); Uric Acid 2.1 MG/DL (2.6-6.0)
[2020-07-19] MEDS: PANTOPRAZOLE 40 MG TABLET PO SCH (09:47)
[2020-07-19] MEDS: predniSONE 20 MG TABLET PO SCH (09:48)
[2020-07-19] MEDS: HYDROmorphone 2 MG/1 ML VIAL IV PRN ×3 (10:07→21:32)
[2020-07-19] MEDS: methylPREDNISolone SOD SUC 125 MG/2 ML VIAL IV SCH (14:08)
[2020-07-19] MEDS: ONDANSETRON 4 MG/2 ML VIAL IV PRN ×2 (15:58→21:35)
[2020-07-20] MEDS: PIPERACILLIN/TAZOBACTAM 3,375 MG in SODIUM CHLORIDE 0.9% 100 ML IV SCH ×3 (00:25→17:05)
[2020-07-20] MEDS: HYDROmorphone 2 MG/1 ML VIAL IV PRN ×2 (05:28→12:52)
[2020-07-20] MEDS: predniSONE 20 MG TABLET PO SCH (09:10)
[2020-07-20] MEDS: methylPREDNISolone SOD SUC 125 MG/2 ML VIAL IV SCH (09:11)
[2020-07-20] MEDS: PANTOPRAZOLE 40 MG TABLET PO SCH (09:11)
[2020-07-20] MEDS: ONDANSETRON 4 MG/2 ML VIAL IV PRN (09:20)
[2020-07-20 16:40] VITALS: BP 104/59
== END 2020-07-20 16:40 | disposition home health service (06) ==
LOC: N.ED 13:06 → N.EDINP 13:06 → N.3E 20:37
PROVIDERS: ADMIT Surgery; ATTEND Surgery

== ENCOUNTER 2021-04-08 09:57 | Inpatient (IN) ==
[2021-04-08] MEDS ORDERED: LORazepam 2 MG/1 ML VIAL IV STA (10:23)
[2021-04-08] MEDS ORDERED: HYDROmorphone 2 MG/1 ML VIAL IV STA ×2 (10:23→16:18)
[2021-04-08] MEDS ORDERED: SODIUM CHLORIDE 0.9% 1,000 ML IV STA (10:23)
[2021-04-08] MEDS ORDERED: ONDANSETRON 4 MG/2 ML VIAL IV STA (10:23)
[2021-04-08 11:32] LABS: Alanine Aminotransferase 23 U/L (13-56); Albumin 3.3 G/DL (3.4-5.0); Alkaline Phosphatase 85 U/L (45-117); Aspartate Amino Transferase 22 U/L (0-37); Bilirubin,Total < 0.39 MG/DL (0.2-1.0); Blood Urea Nitrogen 10 MG/DL (7-18); Calcium 9.2 MG/DL (8.5-10.1); Carbon Dioxide 25 MMOL/L (21-32); Estimated Glom Filtration Rate 118 ML/MIN; Glucose 98 MG/DL (74-106); Osmolality,Calculated 266.2 MOS/KG (273-304); Potassium 3.2 MMOL/L (3.5-5.1); Sodium 134 MMOL/L (136-145); Total Protein 9.3 G/DL (6.4-8.2)
[2021-04-08 12:18] LABS: Basophils # 0.1 10*3/uL (0.0-0.2); Basophils % 0.3 % (0.0-0.8); Eosinophils % 0.1 % (0.00-10.9); Hematocrit 23.6 VOL% (35.7-47.0); Hemoglobin 6.9 GM/DL (12.0-16.0); Immature Granulocytes % 1.2 %; Immature Granulocytes Absolute 0.23 #; Lymphocytes # 2.1 10*3/uL (1.4-4.0); Lymphocytes % 10.9 % (21.3-54.2); Mean Corpuscular HGB Conc 29.2 GM/DL (32-36); Monocytes % 10.5 % (1.7-12.7); NRBC # 0.05 10*3/uL; Platelet Count 578 T/CUMM (130-400); Red Blood Count 3.19 MC/CUMM (3.8-5.5); Red Cell Distribution Width 16.6 % (9.3-17.3); White Blood Count 19.2 T/CUMM (4-12)
[2021-04-08] MEDS ORDERED: fentaNYL 100 MCG/2 ML VIAL IV STA (12:24)
[2021-04-08 13:14] LABS: Sedimentation Rate-Westergren 82 MM/HR (0-20)
[2021-04-08] MEDS ORDERED: POTASSIUM CHLORIDE 20 MEQ TABLET PO STA (13:15)
[2021-04-08] MEDS: SODIUM CHLORIDE 0.9% 1,000 ML IV SCH (14:00)
[2021-04-08] MEDS: HYDROmorphone 2 MG/1 ML VIAL IV PRN ×3 (14:05→22:36)
[2021-04-08] MEDS: predniSONE 20 MG TABLET PO PRN (14:10)
[2021-04-08] MEDS: ENOXAPARIN 40 MG/0.4 ML SYRINGE SUBCUT SCH (14:30)
[2021-04-08] MEDS ORDERED: VANCOMYCIN INJ 1,000 MG in SODIUM CHLORIDE 0.9% 250 ML IV SCH (18:57)
[2021-04-08] MEDS ORDERED: SODIUM CHLORIDE 0.9% 1,000 ML IV PRN (18:57)
[2021-04-08] MEDS ORDERED: PIPERACILLIN/TAZOBACTAM 3,375 MG VIAL IV ONE (18:58)
[2021-04-08] MEDS ORDERED: SODIUM CHLORIDE 0.9% 100 ML IV ONE (18:59)
[2021-04-08] MEDS ORDERED: VANCOMYCIN 1,000 MG VIAL ONE (19:16)
[2021-04-08] MEDS: ONDANSETRON 4 MG/2 ML VIAL IV PRN (19:23)
[2021-04-08] MEDS: PIPERACILLIN/TAZOBACTAM 3,375 MG in SODIUM CHLORIDE 0.9% 100 ML IV SCH (20:00)
[2021-04-09] MEDS: ACETAMINOPHEN 325 MG TABLET PO PRN ×2 (01:48→20:19)
[2021-04-09] MEDS: HYDROmorphone 2 MG/1 ML VIAL IV PRN ×4 (02:03→20:15)
[2021-04-09] MEDS: ONDANSETRON 4 MG/2 ML VIAL IV PRN ×2 (02:05→09:52)
[2021-04-09 02:47] LABS: Bilirubin,Urine Negative (Negative); Blood, Urine Small mg/dL (Negative); Glucose,Urine (UA) Negative (Negative); Ketones,Urine Negative (Negative); Mucus,Urine Occasional /LPF (Occasional); Nitrite,Urine Negative (Negative); Protein,Urine Negative; RBC,Urine 2 /HPF (0-4); Squamous Epithelial Cell,Urine Occasional /HPF (0-10); Urine Appearance CLEAR (Clear); Urine Color Yellow (Yellow); Urine Specific Gravity 1.012 (1.001-1.035); Urine Urobilinogen < 2.0 EU/DL (0.2-1.0)
[2021-04-09] MEDS: SODIUM CHLORIDE 0.9% 1,000 ML IV SCH ×4 (03:40→22:41)
[2021-04-09] MEDS: PIPERACILLIN/TAZOBACTAM 3,375 MG in SODIUM CHLORIDE 0.9% 100 ML IV SCH ×3 (04:27→20:22)
[2021-04-09] MEDS: VANCOMYCIN INJ 1,500 MG in SODIUM CHLORIDE 0.9% 500 ML IV SCH ×2 (05:25→17:27)
[2021-04-09 05:37] LABS: Hematocrit 30.4 VOL% (35.7-47.0); Hemoglobin 9.2 GM/DL (12.0-16.0); Mean Corpuscular HGB Conc 30.3 GM/DL (32-36); Mean Corpuscular Volume 77.6 FL (87-102); Red Blood Count 3.92 MC/CUMM (3.8-5.5); Red Cell Distribution Width 18.9 % (9.3-17.3); White Blood Count 19.9 T/CUMM (4-12)
[2021-04-09 05:38] LABS: Basophils # 0.1 10*3/uL (0.0-0.2); Basophils % 0.3 % (0.0-0.8); Immature Granulocytes % 1.2 %; Immature Granulocytes Absolute 0.23 #; Lymphocytes # 1.2 10*3/uL (1.4-4.0); Lymphocytes % 6.1 % (21.3-54.2); Mean Platelet Volume 9.4 FL (9.6-12.0); Monocytes % 7.7 % (1.7-12.7); NRBC # 0.03 10*3/uL; Neutrophils % 84.7 % (38.7-73.9); Platelet Count 594 T/CUMM (130-400)
[2021-04-09] MEDS: sulfaSALAzine 500 MG TABLET PO SCH (08:28)
[2021-04-09] MEDS: PANTOPRAZOLE 40 MG TABLET PO SCH (08:28)
[2021-04-09] MEDS: ENOXAPARIN 40 MG/0.4 ML SYRINGE SUBCUT SCH (20:21)
[2021-04-09] MEDS: predniSONE 20 MG TABLET PO PRN (20:25)
[2021-04-10] MEDS: ONDANSETRON 4 MG/2 ML VIAL IV PRN ×4 (00:28→22:45)
[2021-04-10] MEDS: HYDROmorphone 2 MG/1 ML VIAL IV PRN ×5 (00:30→22:46)
[2021-04-10] MEDS: PIPERACILLIN/TAZOBACTAM 3,375 MG in SODIUM CHLORIDE 0.9% 100 ML IV SCH ×3 (04:40→21:06)
[2021-04-10] MEDS: VANCOMYCIN INJ 1,500 MG in SODIUM CHLORIDE 0.9% 500 ML IV SCH ×2 (05:24→17:47)
[2021-04-10 08:19] LABS: Basophils % 0.2 % (0.0-0.8); Hemoglobin 9.7 GM/DL (12.0-16.0); Immature Granulocytes % 1.6 %; Immature Granulocytes Absolute 0.26 #; Lymphocytes # 1.6 10*3/uL (1.4-4.0); Lymphocytes % 9.5 % (21.3-54.2); Mean Corpuscular HGB Conc 31.3 GM/DL (32-36); Mean Corpuscular Volume 75.8 FL (87-102); Mean Platelet Volume 9.1 FL (9.6-12.0); NRBC # 0.05 10*3/uL; Neutrophils % 78.7 % (38.7-73.9); Platelet Count 577 T/CUMM (130-400); Red Blood Count 4.09 MC/CUMM (3.8-5.5); Red Cell Distribution Width 18.6 % (9.3-17.3); White Blood Count 16.5 T/CUMM (4-12)
[2021-04-10 08:35] LABS: Calcium 8.8 MG/DL (8.5-10.1); Osmolality,Calculated 270.8 MOS/KG (273-304); Potassium 3.9 MMOL/L (3.5-5.1)
[2021-04-10] MEDS: PROMETHAZINE 25 MG/1 ML VIAL IM PRN (09:04)
[2021-04-10] MEDS: SODIUM CHLORIDE 0.9% 1,000 ML IV SCH ×4 (09:06→21:05)
[2021-04-10] MEDS: sulfaSALAzine 500 MG TABLET PO SCH (10:05)
[2021-04-10] MEDS: PANTOPRAZOLE 40 MG TABLET PO SCH (10:05)
[2021-04-10] MEDS: predniSONE 20 MG TABLET PO PRN (13:58)
[2021-04-10] MEDS: ENOXAPARIN 40 MG/0.4 ML SYRINGE SUBCUT SCH (21:07)
[2021-04-11] MEDS: PIPERACILLIN/TAZOBACTAM 3,375 MG in SODIUM CHLORIDE 0.9% 100 ML IV SCH ×3 (03:31→23:10)
[2021-04-11] MEDS: ONDANSETRON 4 MG/2 ML VIAL IV PRN ×3 (04:03→13:58)
[2021-04-11] MEDS: HYDROmorphone 2 MG/1 ML VIAL IV PRN ×5 (04:05→22:25)
[2021-04-11] MEDS: SODIUM CHLORIDE 0.9% 1,000 ML IV SCH ×3 (07:12→19:30)
[2021-04-11] MEDS ORDERED: DIAZEPAM 2 MG TABLET PO PRN (07:51)
[2021-04-11] MEDS: VANCOMYCIN INJ 1,750 MG in SODIUM CHLORIDE 0.9% 500 ML IV SCH ×2 (09:18→19:38)
[2021-04-11] MEDS: sulfaSALAzine 500 MG TABLET PO SCH (09:22)
[2021-04-11] MEDS: PANTOPRAZOLE 40 MG TABLET PO SCH (09:22)
[2021-04-11] MEDS: predniSONE 20 MG TABLET PO PRN (17:39)
[2021-04-11] MEDS: ENOXAPARIN 40 MG/0.4 ML SYRINGE SUBCUT SCH ×2 (19:40→20:07)
[2021-04-12] MEDS: SODIUM CHLORIDE 0.9% 1,000 ML IV SCH ×2 (03:55→15:47)
[2021-04-12] MEDS: HYDROmorphone 2 MG/1 ML VIAL IV PRN ×4 (04:45→21:30)
[2021-04-12 05:09] LABS: Basophils % 0.2 % (0.0-0.8); Hematocrit 28.3 VOL% (35.7-47.0); Hemoglobin 8.6 GM/DL (12.0-16.0); Immature Granulocytes % 2.7 %; Immature Granulocytes Absolute 0.45 #; Lymphocytes # 1.3 10*3/uL (1.4-4.0); Lymphocytes % 7.6 % (21.3-54.2); Mean Corpuscular HGB Conc 30.4 GM/DL (32-36); Mean Corpuscular Volume 76.7 FL (87-102); Mean Platelet Volume 9.4 FL (9.6-12.0); Monocytes % 8.2 % (1.7-12.7); NRBC # 0.04 10*3/uL; Neutrophils % 81.3 % (38.7-73.9); Platelet Count 512 T/CUMM (130-400); Red Blood Count 3.69 MC/CUMM (3.8-5.5); Red Cell Distribution Width 19.1 % (9.3-17.3); White Blood Count 16.8 T/CUMM (4-12)
[2021-04-12 06:08] LABS: Anisocytosis 1+; Band Neutrophils 26 % (0-10); Lymphocytes 10 % (20-55); Metamyelocytes 1 %; Ovalocytes Few; Platelet Estimate Increased; Segmented Neutrophils 57 % (50-85); Total Cells Counted 100
[2021-04-12] MEDS: PIPERACILLIN/TAZOBACTAM 3,375 MG in SODIUM CHLORIDE 0.9% 100 ML IV SCH ×3 (06:20→23:53)
[2021-04-12 06:45] LABS: Sedimentation Rate-Westergren 83 MM/HR (0-20)
[2021-04-12] MEDS: PANTOPRAZOLE 40 MG TABLET PO SCH (08:11)
[2021-04-12] MEDS: ONDANSETRON 4 MG/2 ML VIAL IV PRN ×2 (08:11→20:56)
[2021-04-12] MEDS: sulfaSALAzine 500 MG TABLET PO SCH (08:11)
[2021-04-12] MEDS: VANCOMYCIN INJ 1,750 MG in SODIUM CHLORIDE 0.9% 500 ML IV SCH ×2 (08:12→20:50)
[2021-04-12] MEDS: predniSONE 10 MG TABLET PO SCH (15:25)
[2021-04-12] MEDS: methylPREDNISolone SOD SUC 40 MG/1 ML VIAL IV SCH (17:10)
[2021-04-12] MEDS: PROMETHAZINE 25 MG/1 ML VIAL IM PRN (18:19)
[2021-04-12] MEDS: ENOXAPARIN 40 MG/0.4 ML SYRINGE SUBCUT SCH (20:50)
[2021-04-13] MEDS: methylPREDNISolone SOD SUC 40 MG/1 ML VIAL IV SCH ×3 (01:29→16:29)
[2021-04-13] MEDS: SODIUM CHLORIDE 0.9% 1,000 ML IV SCH ×2 (01:30→03:10)
[2021-04-13] MEDS: HYDROmorphone 2 MG/1 ML VIAL IV PRN ×3 (03:12→20:21)
[2021-04-13] MEDS: PIPERACILLIN/TAZOBACTAM 3,375 MG in SODIUM CHLORIDE 0.9% 100 ML IV SCH ×3 (05:37→22:40)
[2021-04-13] MEDS: sulfaSALAzine 500 MG TABLET PO SCH (08:46)
[2021-04-13] MEDS: PANTOPRAZOLE 40 MG TABLET PO SCH (08:46)
[2021-04-13] MEDS: VANCOMYCIN INJ 1,750 MG in SODIUM CHLORIDE 0.9% 500 ML IV SCH ×2 (08:47→20:21)
[2021-04-13] MEDS: predniSONE 10 MG TABLET PO SCH (08:47)
[2021-04-13] MEDS: ONDANSETRON 4 MG/2 ML VIAL IV PRN ×2 (12:43→20:20)
[2021-04-13] MEDS: ENOXAPARIN 40 MG/0.4 ML SYRINGE SUBCUT SCH (20:06)
[2021-04-14] MEDS: methylPREDNISolone SOD SUC 40 MG/1 ML VIAL IV SCH ×2 (02:10→08:14)
[2021-04-14] MEDS: HYDROmorphone 2 MG/1 ML VIAL IV PRN (02:24)
[2021-04-14] MEDS: PIPERACILLIN/TAZOBACTAM 3,375 MG in SODIUM CHLORIDE 0.9% 100 ML IV SCH (06:38)
[2021-04-14 07:25] VITALS: BP 136/67
[2021-04-14] MEDS: VANCOMYCIN INJ 1,750 MG in SODIUM CHLORIDE 0.9% 500 ML IV SCH (08:10)
[2021-04-14] MEDS: predniSONE 10 MG TABLET PO SCH (08:13)
[2021-04-14] MEDS: sulfaSALAzine 500 MG TABLET PO SCH (08:13)
[2021-04-14] MEDS: PANTOPRAZOLE 40 MG TABLET PO SCH (08:13)
== END 2021-04-14 10:20 | disposition home or self-care (01) | DRG 556 ==
LOC: N.ED 09:57 → N.EDINP 13:43 → N.5E 17:17
PROVIDERS: ADMIT Family Medicine; ATTEND Family Medicine

== ENCOUNTER 2021-04-29 17:18 | Inpatient (IN) ==
[2021-04-29] MEDS ORDERED: HYDROmorphone 2 MG/1 ML VIAL IV STA (19:51)
[2021-04-29] MEDS ORDERED: methylPREDNISolone SOD SUC 125 MG/2 ML VIAL IV STA (19:51)
[2021-04-29] MEDS ORDERED: ONDANSETRON 4 MG/2 ML VIAL IV STA (19:51)
[2021-04-29 20:51] LABS: Basophils # 0.1 10*3/uL (0.0-0.2); Basophils % 0.2 % (0.0-0.8); Eosinophils % 0.1 % (0.00-10.9); Hematocrit 29.5 VOL% (35.7-47.0); Hemoglobin 8.9 GM/DL (12.0-16.0); Immature Granulocytes Absolute 0.29 #; Lymphocytes # 2.3 10*3/uL (1.4-4.0); Lymphocytes % 8.3 % (21.3-54.2); Mean Corpuscular HGB Conc 30.2 GM/DL (32-36); Mean Corpuscular Volume 74.3 FL (87-102); Mean Platelet Volume 8.5 FL (9.6-12.0); Monocytes % 6.5 % (1.7-12.7); NRBC # 0.02 10*3/uL; Neutrophils % 83.9 % (38.7-73.9); Platelet Count 774 T/CUMM (130-400); Red Blood Count 3.97 MC/CUMM (3.8-5.5); Red Cell Distribution Width 19.7 % (9.3-17.3); White Blood Count 28.1 T/CUMM (4-12)
[2021-04-29 21:14] LABS: Band Neutrophils 1 % (0-10); Lymphocytes 9 % (20-55); Myelocytes 1 %; Segmented Neutrophils 84 % (50-85); Total Cells Counted 100
[2021-04-29 21:15] LABS: Anisocytosis 3+; Bilirubin,Total 0.8 MG/DL (0.2-1.0); Calcium 9.3 MG/DL (8.5-10.1); Hypochromasia 1+; Macrocytosis 1+; Microcytosis 3+; Osmolality,Calculated 256.9 MOS/KG (273-304); Platelet Estimate Increased; Polychromasia 1+; Potassium 4.2 MMOL/L (3.5-5.1); Spherocytes 1+; Total Protein 7.8 G/DL (6.4-8.2)
[2021-04-29] MEDS ORDERED: SODIUM CHLORIDE 0.9% 1,000 ML IV STA (21:23)
[2021-04-29] MEDS ORDERED: VANCOMYCIN INJ 1,000 MG in SODIUM CHLORIDE 0.9% 250 ML IV STA (21:24)
[2021-04-29] MEDS ORDERED: DEXTROSE 50% 25 GM/50 ML VIAL IV PRN (21:28)
[2021-04-29] MEDS ORDERED: METOPROLOL TARTRATE 5 MG/5 ML VIAL IV STA (21:28)
[2021-04-29] MEDS ORDERED: GLUCAGON 1 MG VIAL IM PRN (21:28)
[2021-04-30] MEDS: SODIUM CHLORIDE 0.9% 1,000 ML IV SCH ×3 (01:14→15:38)
[2021-04-30] MEDS: MORPHINE 4 MG/1 ML VIAL IV PRN (03:06)
[2021-04-30 04:06] LABS: Basophils % 0.1 % (0.0-0.8); Hematocrit 25.9 VOL% (35.7-47.0); Hemoglobin 7.8 GM/DL (12.0-16.0); Immature Granulocytes % 0.9 %; Immature Granulocytes Absolute 0.21 #; Lymphocytes # 0.6 10*3/uL (1.4-4.0); Lymphocytes % 2.7 % (21.3-54.2); Mean Corpuscular HGB Conc 30.1 GM/DL (32-36); Mean Corpuscular Volume 74.6 FL (87-102); Mean Platelet Volume 8.3 FL (9.6-12.0); Monocytes % 0.6 % (1.7-12.7); Neutrophils % 95.7 % (38.7-73.9); Platelet Count 663 T/CUMM (130-400); Red Blood Count 3.47 MC/CUMM (3.8-5.5); Red Cell Distribution Width 19.5 % (9.3-17.3); White Blood Count 23.6 T/CUMM (4-12)
[2021-04-30 04:26] LABS: Hypochromasia 2+; Lymphocytes 3 % (20-55); Microcytosis 1+; Platelet Estimate Increased; Segmented Neutrophils 97 % (50-85); Total Cells Counted 100
[2021-04-30 04:31] LABS: Calcium 9.4 MG/DL (8.5-10.1); Osmolality,Calculated 274.2 MOS/KG (273-304); Potassium 4.3 MMOL/L (3.5-5.1)
[2021-04-30] MEDS: VANCOMYCIN INJ 1,500 MG in SODIUM CHLORIDE 0.9% 500 ML IV SCH ×2 (08:45→20:42)
[2021-04-30] MEDS: PANTOPRAZOLE 40 MG TABLET PO SCH (09:15)
[2021-04-30] MEDS: sulfaSALAzine 500 MG TABLET PO SCH (09:15)
[2021-04-30] MEDS: methylPREDNISolone SOD SUC 40 MG/1 ML VIAL IV SCH ×2 (09:17→20:43)
[2021-04-30] MEDS: ONDANSETRON 4 MG/2 ML VIAL IV PRN (09:18)
[2021-05-01] MEDS: SODIUM CHLORIDE 0.9% 1,000 ML IV SCH ×5 (03:31→21:25)
[2021-05-01] MEDS: ONDANSETRON 4 MG/2 ML VIAL IV PRN (07:35)
[2021-05-01] MEDS ORDERED: LORazepam 2 MG/1 ML VIAL IV ONE (08:55)
[2021-05-01] MEDS: PANTOPRAZOLE 40 MG TABLET PO SCH (09:09)
[2021-05-01] MEDS: sulfaSALAzine 500 MG TABLET PO SCH (09:09)
[2021-05-01] MEDS: methylPREDNISolone SOD SUC 40 MG/1 ML VIAL IV SCH ×2 (09:10→21:21)
[2021-05-01] MEDS: VANCOMYCIN INJ 1,500 MG in SODIUM CHLORIDE 0.9% 500 ML IV SCH ×2 (11:26→22:14)
[2021-05-01] MEDS: MORPHINE 4 MG/1 ML VIAL IV PRN ×2 (15:00→21:21)
[2021-05-01] MEDS ORDERED: LORazepam 2 MG/1 ML VIAL IV PRN (15:48)
[2021-05-02 07:22] LABS: Basophils % 0.1 % (0.0-0.8); Hematocrit 21.9 VOL% (35.7-47.0); Immature Granulocytes % 1.2 %; Immature Granulocytes Absolute 0.13 #; Lymphocytes # 1.6 10*3/uL (1.4-4.0); Lymphocytes % 14.5 % (21.3-54.2); Mean Corpuscular HGB Conc 28.3 GM/DL (32-36); Mean Corpuscular Volume 76.8 FL (87-102); Mean Platelet Volume 8.8 FL (9.6-12.0); Monocytes % 6.9 % (1.7-12.7); NRBC # 0.02 10*3/uL; Neutrophils % 77.3 % (38.7-73.9); Platelet Count 497 T/CUMM (130-400); Red Blood Count 2.85 MC/CUMM (3.8-5.5); Red Cell Distribution Width 19.3 % (9.3-17.3); White Blood Count 11.2 T/CUMM (4-12)
[2021-05-02 07:26] LABS: Hemoglobin 6.2 GM/DL (12.0-16.0)
[2021-05-02 07:40] LABS: Calcium 8.5 MG/DL (8.5-10.1); Osmolality,Calculated 277.4 MOS/KG (273-304)
[2021-05-02 07:46] LABS: Hypochromasia 1+; Microcytosis 1+
[2021-05-02 07:47] LABS: Platelet Estimate Adequate
[2021-05-02] MEDS ORDERED: SODIUM CHLORIDE 0.9% 1,000 ML IV PRN (08:11)
[2021-05-02] MEDS ORDERED: FUROSEMIDE 40 MG/4 ML VIAL IV PRN (08:11)
[2021-05-02 08:50] LABS: % Iron Saturation 4.8 % (18-50); Ferritin 39.8 ng/ml (8-252)
[2021-05-02] MEDS: PANTOPRAZOLE 40 MG TABLET PO SCH (09:28)
[2021-05-02] MEDS: SODIUM CHLORIDE 0.9% 1,000 ML IV SCH ×2 (09:28→16:17)
[2021-05-02] MEDS: sulfaSALAzine 500 MG TABLET PO SCH (09:28)
[2021-05-02] MEDS: methylPREDNISolone SOD SUC 40 MG/1 ML VIAL IV SCH ×2 (09:28→20:24)
[2021-05-02] MEDS ORDERED: FUROSEMIDE 40 MG/4 ML VIAL IV ONE (12:00)
[2021-05-02] MEDS: VANCOMYCIN INJ 1,500 MG in SODIUM CHLORIDE 0.9% 500 ML IV SCH (13:31)
[2021-05-02] MEDS: MORPHINE 4 MG/1 ML VIAL IV PRN (18:11)
[2021-05-02 21:44] LABS: Hematocrit 31.1 VOL% (35.7-47.0); Hemoglobin 9.5 GM/DL (12.0-16.0)
[2021-05-03] MEDS: SODIUM CHLORIDE 0.9% 1,000 ML IV SCH ×2 (00:05→05:40)
[2021-05-03] MEDS: MORPHINE 4 MG/1 ML VIAL IV PRN (00:06)
[2021-05-03] MEDS: VANCOMYCIN INJ 1,500 MG in SODIUM CHLORIDE 0.9% 500 ML IV SCH (00:30)
[2021-05-03 06:41] LABS: Basophils % 0.1 % (0.0-0.8); Hematocrit 30.8 VOL% (35.7-47.0); Hemoglobin 9.3 GM/DL (12.0-16.0); Immature Granulocytes % 0.9 %; Immature Granulocytes Absolute 0.09 #; Lymphocytes # 1.8 10*3/uL (1.4-4.0); Lymphocytes % 17.4 % (21.3-54.2); Mean Corpuscular HGB Conc 30.2 GM/DL (32-36); Mean Corpuscular Volume 78.8 FL (87-102); Mean Platelet Volume 8.8 FL (9.6-12.0); Monocytes % 7.2 % (1.7-12.7); Neutrophils % 74.4 % (38.7-73.9); Platelet Count 509 T/CUMM (130-400); Red Blood Count 3.91 MC/CUMM (3.8-5.5); Red Cell Distribution Width 19.5 % (9.3-17.3); White Blood Count 10.1 T/CUMM (4-12)
[2021-05-03 06:51] LABS: Calcium 8.9 MG/DL (8.5-10.1); Osmolality,Calculated 276.5 MOS/KG (273-304); Potassium 3.7 MMOL/L (3.5-5.1)
[2021-05-03] MEDS: methylPREDNISolone SOD SUC 40 MG/1 ML VIAL IV SCH (08:14)
[2021-05-03] MEDS: PANTOPRAZOLE 40 MG TABLET PO SCH (08:14)
[2021-05-03] MEDS: sulfaSALAzine 500 MG TABLET PO SCH (08:14)
[2021-05-03 11:28] VITALS: BP 136/79
== END 2021-05-03 12:30 | disposition home or self-care (01) | DRG 603 ==
LOC: N.ED 17:18 → N.EDINP 21:28 → N.2E 04-30 10:36 → N.3E 04-30 15:39
PROVIDERS: ADMIT Family Medicine; ATTEND Family Medicine

== ENCOUNTER 2021-09-26 16:09 | Inpatient (IN) ==
[2021-09-26] MEDS ORDERED: HYDROmorphone 2 MG/1 ML VIAL IV STA ×2 (18:20→20:15)
[2021-09-26] MEDS ORDERED: ONDANSETRON 4 MG/2 ML VIAL IV ONE (18:20)
[2021-09-26 18:23] LABS: Basophils # 0.1 10*3/uL (0.0-0.2); Basophils % 0.2 % (0.0-0.8); Eosinophils % 0.1 % (0.00-10.9); Hematocrit 36.7 VOL% (35.7-47.0); Hemoglobin 10.8 GM/DL (12.0-16.0); Immature Granulocytes % 0.8 %; Immature Granulocytes Absolute 0.16 #; Lymphocytes # 2.5 10*3/uL (1.4-4.0); Lymphocytes % 11.8 % (21.3-54.2); Mean Corpuscular HGB Conc 29.4 GM/DL (32-36); Mean Corpuscular Volume 74.3 FL (87-102); Mean Platelet Volume 9.4 FL (9.6-12.0); Monocytes % 5.5 % (1.7-12.7); Neutrophils % 81.6 % (38.7-73.9); Platelet Count 657 T/CUMM (130-400); Red Blood Count 4.94 MC/CUMM (3.8-5.5); Red Cell Distribution Width 22.1 % (9.3-17.3); White Blood Count 20.9 T/CUMM (4-12)
[2021-09-26 18:55] LABS: Band Neutrophils 1 % (0-10); Lymphocytes 10 % (20-55); Segmented Neutrophils 85 % (50-85); Total Cells Counted 100
[2021-09-26 18:56] LABS: Anisocytosis 1+; Hypochromasia 1+; Platelet Estimate Increased; Polychromasia Slight
[2021-09-26 20:08] LABS: Alanine Aminotransferase 34 U/L (13-56); Albumin 3.5 G/DL (3.4-5.0); Alkaline Phosphatase 79 U/L (45-117); Aspartate Amino Transferase 17 U/L (0-37); Bilirubin,Total < 0.39 MG/DL (0.20-1.00); Blood Urea Nitrogen 11 MG/DL (7-18); Calcium 10.3 MG/DL (8.5-10.1); Carbon Dioxide 25 MMOL/L (21-32); Estimated Glom Filtration Rate 92 ML/MIN; Glucose 92 MG/DL (74-106); Osmolality,Calculated 264.4 MOS/KG (273-304); Potassium 3.8 MMOL/L (3.5-5.1); Sodium 133 MMOL/L (136-145); Total Protein 9.6 G/DL (6.4-8.2)
[2021-09-26] MEDS ORDERED: ACETAMINOPHEN 325 MG TABLET PO PRN (20:40)
[2021-09-26] MEDS ORDERED: ONDANSETRON 4 MG/2 ML VIAL IV PRN (20:40)
[2021-09-26] MEDS: DOCUSATE SODIUM 100 MG CAPSULE PO SCH ×2 (22:06)
[2021-09-27] MEDS: HYDROmorphone 2 MG/1 ML VIAL IV PRN ×5 (00:03→20:52)
[2021-09-27 05:37] LABS: Albumin 3.2 G/DL (3.4-5.0); Bilirubin,Total 0.9 MG/DL (0.20-1.00); Calcium 9.8 MG/DL (8.5-10.1); Osmolality,Calculated 262.5 MOS/KG (273-304); Potassium 3.4 MMOL/L (3.5-5.1)
[2021-09-27 05:56] LABS: Basophils # 0.1 10*3/uL (0.0-0.2); Basophils % 0.3 % (0.0-0.8); Eosinophils # 0.2 10*3/uL (0.0-0.87); Eosinophils % 1.1 % (0.00-10.9); Hematocrit 32.1 VOL% (35.7-47.0); Hemoglobin 9.3 GM/DL (12.0-16.0); Immature Granulocytes % 0.6 %; Immature Granulocytes Absolute 0.09 #; Lymphocytes # 2.1 10*3/uL (1.4-4.0); Lymphocytes % 14.2 % (21.3-54.2); Mean Corpuscular Volume 75.2 FL (87-102); Mean Platelet Volume 9.9 FL (9.6-12.0); Monocytes % 9.1 % (1.7-12.7); Neutrophils % 74.7 % (38.7-73.9); Platelet Count 573 T/CUMM (130-400); Red Blood Count 4.27 MC/CUMM (3.8-5.5); Red Cell Distribution Width 22.2 % (9.3-17.3); White Blood Count 14.9 T/CUMM (4-12)
[2021-09-27 06:27] LABS: Platelet Estimate Increased
[2021-09-27 06:28] LABS: Anisocytosis 1+; Burr Cells Few; Ovalocytes Few; Target Cells Few
[2021-09-27 06:33] LABS: Uric Acid 4.6 MG/DL (2.6-6.0)
[2021-09-27] MEDS: PANTOPRAZOLE 40 MG TABLET PO SCH (08:25)
[2021-09-27] MEDS: DOCUSATE SODIUM 100 MG CAPSULE PO SCH ×3 (08:25→20:50)
[2021-09-27] MEDS ORDERED: LORazepam 2 MG/1 ML VIAL IV ONE (10:33)
[2021-09-27] MEDS: POTASSIUM CHLORIDE 20 MEQ TABLET PO PRN ×3 (12:55→23:41)
[2021-09-28] MEDS: HYDROmorphone 2 MG/1 ML VIAL IV PRN ×5 (03:04→22:47)
[2021-09-28 06:44] LABS: Basophils % 0.3 % (0.0-0.8); Eosinophils # 0.2 10*3/uL (0.0-0.87); Eosinophils % 2.2 % (0.00-10.9); Hematocrit 31.5 VOL% (35.7-47.0); Immature Granulocytes % 0.6 %; Immature Granulocytes Absolute 0.06 #; Lymphocytes # 1.6 10*3/uL (1.4-4.0); Lymphocytes % 15.7 % (21.3-54.2); Mean Corpuscular HGB Conc 27.9 GM/DL (32-36); Mean Corpuscular Volume 74.8 FL (87-102); Mean Platelet Volume 9.9 FL (9.6-12.0); Monocytes % 9.5 % (1.7-12.7); Neutrophils % 71.7 % (38.7-73.9); Platelet Count 559 T/CUMM (130-400); Red Blood Count 4.21 MC/CUMM (3.8-5.5); Red Cell Distribution Width 21.9 % (9.3-17.3); White Blood Count 10.1 T/CUMM (4-12)
[2021-09-28 06:45] LABS: Hemoglobin 8.8 GM/DL (12.0-16.0)
[2021-09-28] MEDS: DOCUSATE SODIUM 100 MG CAPSULE PO SCH ×2 (09:51→22:31)
[2021-09-28] MEDS: POTASSIUM CHLORIDE 20 MEQ TABLET PO PRN ×2 (09:52→11:52)
[2021-09-28] MEDS: predniSONE 20 MG TABLET PO SCH ×2 (09:52→22:31)
[2021-09-28] MEDS: GABAPENTIN 100 MG CAPSULE PO SCH ×3 (09:52→22:32)
[2021-09-28] MEDS: PANTOPRAZOLE 40 MG TABLET PO SCH (09:52)
[2021-09-28 10:53] LABS: Folate 10.12 NG/ML (5.38-24.0)
[2021-09-29] MEDS: HYDROmorphone 2 MG/1 ML VIAL IV PRN ×4 (04:48→21:10)
[2021-09-29 06:58] LABS: Basophils # 0.1 10*3/uL (0.0-0.2); Basophils % 0.5 % (0.0-0.8); Eosinophils # 0.2 10*3/uL (0.0-0.87); Eosinophils % 2.4 % (0.00-10.9); Hematocrit 30.4 VOL% (35.7-47.0); Hemoglobin 8.8 GM/DL (12.0-16.0); Immature Granulocytes % 0.5 %; Immature Granulocytes Absolute 0.05 #; Lymphocytes % 20.9 % (21.3-54.2); Mean Corpuscular HGB Conc 28.9 GM/DL (32-36); Mean Corpuscular Volume 75.4 FL (87-102); Mean Platelet Volume 9.3 FL (9.6-12.0); Monocytes % 8.4 % (1.7-12.7); Neutrophils % 67.3 % (38.7-73.9); Platelet Count 664 T/CUMM (130-400); Red Blood Count 4.03 MC/CUMM (3.8-5.5); Red Cell Distribution Width 21.7 % (9.3-17.3); White Blood Count 9.7 T/CUMM (4-12)
[2021-09-29 07:22] LABS: Calcium 9.6 MG/DL (8.5-10.1); Osmolality,Calculated 271.7 MOS/KG (273-304); Potassium 3.9 MMOL/L (3.5-5.1)
[2021-09-29] MEDS: GABAPENTIN 100 MG CAPSULE PO SCH ×3 (09:14→21:09)
[2021-09-29] MEDS: DOCUSATE SODIUM 100 MG CAPSULE PO SCH ×2 (09:14→20:48)
[2021-09-29] MEDS: PANTOPRAZOLE 40 MG TABLET PO SCH (09:15)
[2021-09-29] MEDS: predniSONE 20 MG TABLET PO SCH ×2 (09:16→20:48)
[2021-09-29] MEDS: CELECOXIB 200 MG CAPSULE PO SCH (11:15)
[2021-09-30] MEDS: HYDROmorphone 2 MG/1 ML VIAL IV PRN (03:03)
[2021-09-30 07:20] LABS: Total Protein (Chem) 8.7 G/DL (6.4-8.3)
[2021-09-30 07:23] LABS: Calcium 9.4 MG/DL (8.5-10.1); Osmolality,Calculated 276.4 MOS/KG (273-304); Potassium 3.8 MMOL/L (3.5-5.1)
[2021-09-30] MEDS: GABAPENTIN 300 MG CAPSULE PO SCH ×3 (08:50→20:20)
[2021-09-30] MEDS: DOCUSATE SODIUM 100 MG CAPSULE PO SCH ×2 (08:50→20:15)
[2021-09-30] MEDS: CELECOXIB 200 MG CAPSULE PO SCH ×2 (08:50→20:18)
[2021-09-30] MEDS: predniSONE 20 MG TABLET PO SCH ×2 (08:51→20:19)
[2021-09-30] MEDS: PANTOPRAZOLE 40 MG TABLET PO SCH (08:51)
[2021-09-30 09:47] LABS: Albumin (SPE) 4.6 G/DL (3.2-5.3); Albumin (SPE) Rel % 52.3 %; Alpha 1 (SPE) 0.3 G/DL (0.1-0.4); Alpha 1 (SPE) Rel % 3.3 %; Alpha 2 (SPE) 0.9 G/DL (0.4-1.0); Alpha 2 (SPE) Rel % 10.2 %; Beta (SPE) 1.2 G/DL (0.5-1.1); Beta (SPE) Rel % 13.9 %; Gamma (SPE) 1.8 G/DL (0.7-1.7); Gamma (SPE) Rel % 20.3 %
[2021-09-30] MEDS: traMADol 50 MG TABLET PO PRN ×2 (14:37→18:47)
[2021-09-30] MEDS: oxyCODONE/ACETAMINOPHEN 5-325 MG TABLET PO PRN ×2 (19:19→23:28)
[2021-10-01] MEDS: GABAPENTIN 300 MG CAPSULE PO SCH ×3 (09:10→21:42)
[2021-10-01] MEDS: PANTOPRAZOLE 40 MG TABLET PO SCH (09:11)
[2021-10-01] MEDS: oxyCODONE/ACETAMINOPHEN 5-325 MG TABLET PO PRN ×3 (09:11→23:35)
[2021-10-01] MEDS: CELECOXIB 200 MG CAPSULE PO SCH ×2 (09:11→21:41)
[2021-10-01] MEDS: predniSONE 20 MG TABLET PO SCH ×2 (09:11→21:43)
[2021-10-01] MEDS: DOCUSATE SODIUM 100 MG CAPSULE PO SCH ×2 (09:11→21:41)
[2021-10-02 06:26] LABS: Antinuclear Ab, S < 0.1 U
[2021-10-02] MEDS: CELECOXIB 200 MG CAPSULE PO SCH (09:16)
[2021-10-02] MEDS: PANTOPRAZOLE 40 MG TABLET PO SCH (09:16)
[2021-10-02] MEDS: oxyCODONE/ACETAMINOPHEN 5-325 MG TABLET PO PRN (09:19)
[2021-10-02] MEDS: GABAPENTIN 300 MG CAPSULE PO SCH (09:19)
[2021-10-02] MEDS: predniSONE 20 MG TABLET PO SCH (09:19)
[2021-10-02] MEDS: DOCUSATE SODIUM 100 MG CAPSULE PO SCH (09:54)
[2021-10-02 11:51] VITALS: BP 115/80
== END 2021-10-02 14:11 | disposition home health service (06) | DRG 386 ==
LOC: N.EDINP 16:09 → N.ED 16:09 → N.5E 23:36
PROVIDERS: ADMIT Family Medicine; ATTEND Family Medicine

== ENCOUNTER 2021-12-21 16:17 | Inpatient (IN) ==
[2021-12-21] MEDS ORDERED: MORPHINE 2 MG/1 ML SYRINGE IV STA (21:05)
[2021-12-21] MEDS ORDERED: ONDANSETRON 4 MG/2 ML VIAL IV ONE (21:05)
[2021-12-21] MEDS ORDERED: VANCOMYCIN INJ 1,000 MG in SODIUM CHLORIDE 0.9% 250 ML IV STA (21:06)
[2021-12-21 21:51] LABS: Basophils % 0.1 % (0.0-0.8); Hematocrit 33.4 VOL% (35.7-47.0); Hemoglobin 9.8 GM/DL (12.0-16.0); Immature Granulocytes % 0.8 %; Immature Granulocytes Absolute 0.11 #; Lymphocytes # 1.8 10*3/uL (1.4-4.0); Lymphocytes % 12.7 % (21.3-54.2); Mean Corpuscular HGB Conc 29.3 GM/DL (32-36); Mean Corpuscular Volume 72.6 FL (87-102); Mean Platelet Volume 9.2 FL (9.6-12.0); Monocytes % 14.9 % (1.7-12.7); Neutrophils % 71.5 % (38.7-73.9); Platelet Count 679 T/CUMM (130-400); Red Cell Distribution Width 20.2 % (9.3-17.3); White Blood Count 14.1 T/CUMM (4-12)
[2021-12-21 22:22] LABS: Band Neutrophils 5 % (0-10); Lymphocytes 18 % (20-55); Metamyelocytes 1 %; Segmented Neutrophils 63 % (50-85); Total Cells Counted 100
[2021-12-21 22:23] LABS: Alanine Aminotransferase 35 U/L (13-56); Albumin 3.3 G/DL (3.4-5.0); Alkaline Phosphatase 101 U/L (45-117); Aspartate Amino Transferase 12 U/L (0-37); Bilirubin,Total < 0.39 MG/DL (0.20-1.00); Blood Urea Nitrogen 13 MG/DL (7-18); Calcium 8.6 MG/DL (8.5-10.1); Carbon Dioxide 25 MMOL/L (21-32); Estimated Glom Filtration Rate 156 ML/MIN; Glucose 92 MG/DL (74-106); Osmolality,Calculated 276.5 MOS/KG (273-304); Potassium 3.5 MMOL/L (3.5-5.1); Sodium 139 MMOL/L (136-145); Total Protein 8.2 G/DL (6.4-8.2)
[2021-12-21 22:25] LABS: Platelet Estimate Increased
[2021-12-21 22:27] LABS: Anisocytosis 2+; Microcytosis 2+; Ovalocytes 2+; Polychromasia Few; Target Cells 1+
[2021-12-21 22:28] LABS: Hypochromia 3+
[2021-12-21] MEDS ORDERED: guaiFENesin/DM ER 600-30 MG TABLET PO PRN (23:15)
[2021-12-21] MEDS ORDERED: hydrALAZINE 20 MG/1 ML VIAL IV PRN (23:15)
[2021-12-21] MEDS ORDERED: GLUCAGON 1 MG VIAL IM PRN (23:15)
[2021-12-21] MEDS ORDERED: DEXTROSE 10% 250 ML BAG IV PRN (23:15)
[2021-12-21] MEDS ORDERED: NICOTINE 21 MG/24 HR PATCH TRANSDERM PRN (23:15)
[2021-12-21] MEDS ORDERED: BISACODYL 5 MG TABLET PO PRN (23:15)
[2021-12-21] MEDS ORDERED: diphenhydrAMINE CAP 25 MG CAPSULE PO PRN (23:15)
[2021-12-22] MEDS: MORPHINE 2 MG/1 ML SYRINGE IV PRN ×2 (01:44→07:28)
[2021-12-22] MEDS: CLINDAMYCIN INJ 600 MG/50 ML PREMIX IV SCH ×2 (01:44→07:28)
[2021-12-22] MEDS: ONDANSETRON 4 MG/2 ML VIAL IV PRN (07:28)
[2021-12-22] MEDS: HEPARIN 5,000 UNIT/1 ML VIAL SUBCUT SCH ×2 (09:10→20:38)
[2021-12-22] MEDS: PANTOPRAZOLE 40 MG TABLET PO SCH (09:10)
[2021-12-22] MEDS: PIPERACILLIN/TAZOBACTAM 3,375 MG in SODIUM CHLORIDE 0.9% 100 ML IV SCH ×2 (12:32→20:44)
[2021-12-22] MEDS: SODIUM CHLORIDE 0.9% 1,000 ML IV SCH ×2 (12:32→12:34)
[2021-12-22] MEDS: HYDROmorphone 2 MG/1 ML VIAL IV PRN ×2 (12:33→20:39)
[2021-12-23] MEDS: ACETAMINOPHEN 325 MG TABLET PO PRN ×2 (00:44→20:39)
[2021-12-23] MEDS: ONDANSETRON 4 MG/2 ML VIAL IV PRN ×3 (04:28→20:41)
[2021-12-23] MEDS: PIPERACILLIN/TAZOBACTAM 3,375 MG in SODIUM CHLORIDE 0.9% 100 ML IV SCH (04:28)
[2021-12-23] MEDS: HYDROmorphone 2 MG/1 ML VIAL IV PRN ×4 (04:59→21:49)
[2021-12-23 05:21] LABS: Basophils % 0.2 % (0.0-0.8); Eosinophils # 0.1 10*3/uL (0.0-0.87); Eosinophils % 0.4 % (0.00-10.9); Hematocrit 31.1 VOL% (35.7-47.0); Hemoglobin 9.1 GM/DL (12.0-16.0); Immature Granulocytes % 0.8 %; Immature Granulocytes Absolute 0.12 #; Lymphocytes # 2.3 10*3/uL (1.4-4.0); Mean Corpuscular HGB Conc 29.3 GM/DL (32-36); Mean Corpuscular Volume 72.7 FL (87-102); Mean Platelet Volume 9.2 FL (9.6-12.0); Monocytes % 16.1 % (1.7-12.7); Neutrophils % 66.5 % (38.7-73.9); Platelet Count 602 T/CUMM (130-400); Red Blood Count 4.28 MC/CUMM (3.8-5.5); Red Cell Distribution Width 19.4 % (9.3-17.3); White Blood Count 14.2 T/CUMM (4-12)
[2021-12-23 05:43] LABS: Band Neutrophils 4 % (0-10); Hypochromia 1+; Lymphocytes 19 % (20-55); Microcytosis 1+; Platelet Estimate Increased; Segmented Neutrophils 64 % (50-85); Total Cells Counted 100
[2021-12-23 08:15] LABS: Calcium 8.3 MG/DL (8.5-10.1); Potassium 3.2 MMOL/L (3.5-5.1)
[2021-12-23] MEDS: PANTOPRAZOLE 40 MG TABLET PO SCH (08:56)
[2021-12-23 09:41] LABS: % Iron Saturation 7.6 % (18-50)
[2021-12-23] MEDS: HEPARIN 5,000 UNIT/1 ML VIAL SUBCUT SCH (11:04)
[2021-12-23] MEDS ORDERED: BISACODYL 5 MG TABLET PO ONE (15:00)
[2021-12-23] MEDS: cefTRIAXone 1,000 MG in SODIUM CHLORIDE 0.9% 100 ML IV SCH (15:05)
[2021-12-23] MEDS: GABAPENTIN 300 MG CAPSULE PO SCH ×2 (15:08→20:39)
[2021-12-23 17:25] LABS: Folate 4.92 NG/ML (5.38-24.0)
[2021-12-23] MEDS ORDERED: POLYETHYLENE GLYCOL POWDER 255 GM BOTTLE PO ONE (18:00)
[2021-12-23] MEDS: SODIUM CHLORIDE 0.9% 1,000 ML IV SCH (20:42)
[2021-12-24] MEDS: HYDROmorphone 2 MG/1 ML VIAL IV PRN ×4 (02:36→22:31)
[2021-12-24] MEDS: ONDANSETRON 4 MG/2 ML VIAL IV PRN ×5 (02:37→22:31)
[2021-12-24] MEDS ORDERED: POLYETHYLENE GLYCOL POWDER 255 GM BOTTLE PO ONE ×2 (05:00→11:00)
[2021-12-24 05:16] LABS: Basophils % 0.2 % (0.0-0.8); Eosinophils % 0.1 % (0.00-10.9); Hematocrit 31.9 VOL% (35.7-47.0); Hemoglobin 9.4 GM/DL (12.0-16.0); Immature Granulocytes % 0.8 %; Immature Granulocytes Absolute 0.12 #; Lymphocytes % 6.6 % (21.3-54.2); Mean Corpuscular HGB Conc 29.5 GM/DL (32-36); Mean Corpuscular Volume 73.3 FL (87-102); Mean Platelet Volume 9.6 FL (9.6-12.0); Monocytes % 12.8 % (1.7-12.7); Neutrophils % 79.5 % (38.7-73.9); Platelet Count 550 T/CUMM (130-400); Red Blood Count 4.35 MC/CUMM (3.8-5.5); Red Cell Distribution Width 19.6 % (9.3-17.3); White Blood Count 14.8 T/CUMM (4-12)
[2021-12-24 05:31] LABS: Calcium 8.4 MG/DL (8.5-10.1); Osmolality,Calculated 267.2 MOS/KG (273-304); Potassium 3.6 MMOL/L (3.5-5.1)
[2021-12-24 05:52] LABS: Band Neutrophils 9 % (0-10); Hypochromia 1+; Lymphocytes 6 % (20-55); Metamyelocytes 1 %; Microcytosis 1+; Ovalocytes Slight; Platelet Estimate Increased; Segmented Neutrophils 68 % (50-85); Total Cells Counted 100
[2021-12-24] MEDS: SODIUM CHLORIDE 0.9% 1,000 ML IV SCH (06:20)
[2021-12-24] MEDS ORDERED: SODIUM CHLORIDE 0.9% 500 ML IV ONE ×2 (09:05→14:19)
[2021-12-24] MEDS: cefTRIAXone 1,000 MG in SODIUM CHLORIDE 0.9% 100 ML IV SCH (10:42)
[2021-12-24] MEDS: GABAPENTIN 300 MG CAPSULE PO SCH ×3 (10:43→22:30)
[2021-12-24] MEDS: PANTOPRAZOLE 40 MG TABLET PO SCH (10:43)
[2021-12-24] MEDS: metroNIDAZOLE INJ 500 MG/100 ML PREMIX IV SCH ×2 (13:50→22:29)
[2021-12-24] MEDS ORDERED: ACETAMINOPHEN 500 MG TABLET PO ONE (14:23)
[2021-12-24] MEDS: CEFEPIME 1,000 MG in SODIUM CHLORIDE 0.9% 100 ML IV SCH (17:03)
[2021-12-24] MEDS: AZITHROMYCIN INJ 500 MG in SODIUM CHLORIDE 0.9% 250 ML IV SCH (17:42)
[2021-12-24 17:47] LABS: Bilirubin,Urine Negative (Negative); Blood, Urine Negative (Negative); Glucose,Urine (UA) Negative (Negative); Ketones,Urine 5 mg/dL (Negative); Nitrite,Urine Negative (Negative); Protein,Urine Negative; RBC,Urine 2 /HPF (0-4); Squamous Epithelial Cell,Urine Occasional /HPF (0-10); Urine Appearance CLEAR (Clear); Urine Color Straw (Yellow); Urine Specific Gravity 1.035 (1.001-1.035); Urine Urobilinogen < 2.0 EU/DL (<2.0)
[2021-12-24] MEDS ORDERED: CLOBETASOL 0.05% OINT 15 GM TUBE TOP SCH (21:00)
[2021-12-24] MEDS: ACETAMINOPHEN 325 MG TABLET PO PRN (22:30)
[2021-12-25] MEDS: CEFEPIME 1,000 MG in SODIUM CHLORIDE 0.9% 100 ML IV SCH ×5 (00:20→22:14)
[2021-12-25] MEDS: HYDROmorphone 2 MG/1 ML VIAL IV PRN ×4 (04:10→22:13)
[2021-12-25] MEDS: metroNIDAZOLE INJ 500 MG/100 ML PREMIX IV SCH ×3 (04:11→22:18)
[2021-12-25] MEDS: ACETAMINOPHEN 325 MG TABLET PO PRN (04:22)
[2021-12-25] MEDS: ONDANSETRON 4 MG/2 ML VIAL IV PRN ×3 (05:09→22:13)
[2021-12-25 05:40] LABS: INR 1.3; PT Patient Result 14.7 SECS (10.5-12.0)
[2021-12-25 05:41] LABS: Basophils % 0.2 % (0.0-0.8); Eosinophils # 0.1 10*3/uL (0.0-0.87); Eosinophils % 0.2 % (0.00-10.9); Hematocrit 27.7 VOL% (35.7-47.0); Hemoglobin 8.2 GM/DL (12.0-16.0); Immature Granulocytes % 1.6 %; Immature Granulocytes Absolute 0.32 #; Lymphocytes # 0.8 10*3/uL (1.4-4.0); Mean Corpuscular HGB Conc 29.6 GM/DL (32-36); Mean Corpuscular Volume 72.5 FL (87-102); Mean Platelet Volume 9.3 FL (9.6-12.0); Monocytes % 11.8 % (1.7-12.7); Neutrophils % 82.2 % (38.7-73.9); Platelet Count 525 T/CUMM (130-400); Red Blood Count 3.82 MC/CUMM (3.8-5.5); Red Cell Distribution Width 19.5 % (9.3-17.3); White Blood Count 20.5 T/CUMM (4-12)
[2021-12-25 05:54] LABS: Calcium 8.6 MG/DL (8.5-10.1); Osmolality,Calculated 266.4 MOS/KG (273-304); Potassium 2.9 MMOL/L (3.5-5.1)
[2021-12-25 06:04] LABS: Band Neutrophils 6 % (0-10); Hypochromia 1+; Lymphocytes 5 % (20-55); Microcytosis 1+; Platelet Estimate Adequate; Segmented Neutrophils 81 % (50-85); Total Cells Counted 100
[2021-12-25] MEDS ORDERED: POTASSIUM CHLORIDE RIDER 10 MEQ/100 ML PREMIX IV PRN (07:06)
[2021-12-25] MEDS ORDERED: LACTATED RINGERS 1,000 ML IV ONE (07:08)
[2021-12-25] MEDS ORDERED: LACTATED RINGERS 1,000 ML IV SCH (08:00)
[2021-12-25] MEDS: GABAPENTIN 300 MG CAPSULE PO SCH ×3 (10:11→22:13)
[2021-12-25] MEDS: PANTOPRAZOLE 40 MG TABLET PO SCH (10:11)
[2021-12-25] MEDS: POTASSIUM CHLORIDE RIDER 10 MEQ/100 ML PREMIX IV SCH ×3 (10:13→15:17)
[2021-12-25] MEDS: SODIUM CHLORIDE 0.9% 1,000 ML IV SCH ×3 (10:13→15:50)
[2021-12-25] MEDS ORDERED: POLYETHYLENE GLYCOL POWDER 255 GM BOTTLE PO ONE (13:00)
[2021-12-25] MEDS: POTASSIUM CHLORIDE 20 MEQ TABLET PO PRN ×4 (13:35→23:09)
[2021-12-25] MEDS: ALBUTEROL 2.5 MG/3 ML NEB RESP TX SCH ×4 (14:30→23:30)
[2021-12-25 18:36] LABS: Hematocrit 24.3 VOL% (35.7-47.0); Hemoglobin 7.4 GM/DL (12.0-16.0)
[2021-12-25] MEDS: AZITHROMYCIN INJ 500 MG in SODIUM CHLORIDE 0.9% 250 ML IV SCH (19:18)
[2021-12-25] MEDS: CLOBETASOL 0.05% CREAM 15 GM TUBE TOP SCH (19:22)
[2021-12-26] MEDS: SODIUM CHLORIDE 0.9% 1,000 ML IV SCH ×3 (00:08→19:58)
[2021-12-26] MEDS: metroNIDAZOLE INJ 500 MG/100 ML PREMIX IV SCH ×3 (03:36→22:54)
[2021-12-26] MEDS: HYDROmorphone 2 MG/1 ML VIAL IV PRN ×4 (03:52→22:56)
[2021-12-26 05:23] LABS: Basophils % 0.1 % (0.0-0.8); Eosinophils # 0.1 10*3/uL (0.0-0.87); Eosinophils % 0.5 % (0.00-10.9); Hematocrit 26.8 VOL% (35.7-47.0); Hemoglobin 7.9 GM/DL (12.0-16.0); Immature Granulocytes Absolute 0.17 #; Lymphocytes # 1.6 10*3/uL (1.4-4.0); Lymphocytes % 9.5 % (21.3-54.2); Mean Corpuscular HGB Conc 29.5 GM/DL (32-36); Mean Corpuscular Volume 72.8 FL (87-102); Mean Platelet Volume 9.1 FL (9.6-12.0); Monocytes % 13.3 % (1.7-12.7); NRBC # 0.02 10*3/uL; Neutrophils % 75.6 % (38.7-73.9); Platelet Count 528 T/CUMM (130-400); Red Blood Count 3.68 MC/CUMM (3.8-5.5); Red Cell Distribution Width 19.6 % (9.3-17.3); White Blood Count 16.6 T/CUMM (4-12)
[2021-12-26 05:48] LABS: Calcium 8.5 MG/DL (8.5-10.1); Potassium 3.4 MMOL/L (3.5-5.1)
[2021-12-26 05:50] LABS: Band Neutrophils 12 % (0-10); Eosinophils 2 % (0-10); Hypochromia 1+; Lymphocytes 10 % (20-55); Segmented Neutrophils 63 % (50-85); Total Cells Counted 100
[2021-12-26 05:51] LABS: Microcytosis 1+; Ovalocytes Slight; Polychromasia Slight; Target Cells Slight
[2021-12-26 05:52] LABS: Platelet Estimate Increased
[2021-12-26] MEDS: CEFEPIME 1,000 MG in SODIUM CHLORIDE 0.9% 100 ML IV SCH ×3 (06:01→17:35)
[2021-12-26] MEDS: ALBUTEROL 2.5 MG/3 ML NEB RESP TX SCH ×3 (07:35→19:53)
[2021-12-26] MEDS ORDERED: LACTATED RINGERS 1,000 ML IV SCH (08:00)
[2021-12-26] MEDS: GABAPENTIN 300 MG CAPSULE PO SCH ×3 (11:55→22:55)
[2021-12-26] MEDS: POTASSIUM CHLORIDE 20 MEQ TABLET PO PRN ×3 (11:56→20:13)
[2021-12-26] MEDS: PANTOPRAZOLE 40 MG TABLET PO SCH (11:56)
[2021-12-26] MEDS ORDERED: fentaNYL 100 MCG/2 ML VIAL ONE (13:39)
[2021-12-26] MEDS ORDERED: LIDOCAINE 2% 5 ML VIAL ONE (13:47)
[2021-12-26] MEDS ORDERED: propofoL 200 MG/20 ML VIAL IV ONE (13:47)
[2021-12-26] MEDS ORDERED: PHENYLEPHRINE 1 MG/10 ML SYRINGE IV ONE (13:47)
[2021-12-26] MEDS: POTASSIUM CHLORIDE RIDER 10 MEQ/100 ML PREMIX IV SCH (14:39)
[2021-12-26] MEDS: DOCOSANOL 10% CREAM 2 GM TUBE TOP SCH ×3 (15:24→22:56)
[2021-12-26] MEDS ORDERED: FLUCONAZOLE 150 MG TABLET PO ONE (17:00)
[2021-12-26] MEDS: CLOBETASOL 0.05% CREAM 15 GM TUBE TOP SCH (17:34)
[2021-12-26] MEDS: ONDANSETRON 4 MG/2 ML VIAL IV PRN (17:35)
[2021-12-26] MEDS: AZITHROMYCIN INJ 500 MG in SODIUM CHLORIDE 0.9% 250 ML IV SCH (19:58)
[2021-12-26] MEDS: ACETAMINOPHEN 325 MG TABLET PO PRN (23:32)
[2021-12-27] MEDS: CEFEPIME 1,000 MG in SODIUM CHLORIDE 0.9% 100 ML IV SCH ×4 (00:31→22:01)
[2021-12-27] MEDS: ALBUTEROL 2.5 MG/3 ML NEB RESP TX SCH ×4 (00:52→19:11)
[2021-12-27] MEDS: SODIUM CHLORIDE 0.9% 1,000 ML IV SCH ×2 (02:42→11:20)
[2021-12-27] MEDS: DOCOSANOL 10% CREAM 2 GM TUBE TOP SCH ×5 (06:11→22:04)
[2021-12-27] MEDS: HYDROmorphone 2 MG/1 ML VIAL IV PRN ×4 (06:12→22:00)
[2021-12-27 06:34] LABS: Basophils % 0.1 % (0.0-0.8); Eosinophils % 0.2 % (0.00-10.9); Hematocrit 23.9 VOL% (35.7-47.0); Hemoglobin 7.1 GM/DL (12.0-16.0); Immature Granulocytes % 1.1 %; Immature Granulocytes Absolute 0.16 #; Lymphocytes # 1.6 10*3/uL (1.4-4.0); Lymphocytes % 11.5 % (21.3-54.2); Mean Corpuscular HGB Conc 29.7 GM/DL (32-36); Mean Corpuscular Volume 72.9 FL (87-102); Mean Platelet Volume 9.2 FL (9.6-12.0); Monocytes % 11.5 % (1.7-12.7); NRBC # 0.03 10*3/uL; Neutrophils % 75.6 % (38.7-73.9); Platelet Count 488 T/CUMM (130-400); Red Blood Count 3.28 MC/CUMM (3.8-5.5); Red Cell Distribution Width 19.4 % (9.3-17.3)
[2021-12-27] MEDS: POTASSIUM CHLORIDE 20 MEQ TABLET PO PRN (06:45)
[2021-12-27 06:49] LABS: Calcium 8.4 MG/DL (8.5-10.1); Osmolality,Calculated 269.8 MOS/KG (273-304); Potassium 3.2 MMOL/L (3.5-5.1)
[2021-12-27] MEDS ORDERED: POTASSIUM CHLORIDE 20 MEQ TABLET PO ONE (07:07)
[2021-12-27] MEDS ORDERED: SODIUM CHLORIDE 0.9% 1,000 ML IV PRN (07:08)
[2021-12-27 07:15] LABS: Band Neutrophils 6 % (0-10); Hypochromia 2+; Lymphocytes 13 % (20-55); Microcytosis 1+; Segmented Neutrophils 74 % (50-85); Target Cells Slight; Total Cells Counted 100
[2021-12-27 07:16] LABS: Ovalocytes Slight; Platelet Estimate Increased; Polychromasia Slight
[2021-12-27] MEDS ORDERED: LACTATED RINGERS 500 ML IV ONE (07:50)
[2021-12-27] MEDS: PANTOPRAZOLE 40 MG TABLET PO SCH (09:29)
[2021-12-27] MEDS: GABAPENTIN 300 MG CAPSULE PO SCH ×3 (09:29→21:56)
[2021-12-27] MEDS: ONDANSETRON 4 MG/2 ML VIAL IV PRN ×2 (09:30→21:58)
[2021-12-27] MEDS: metroNIDAZOLE 500 MG TABLET PO SCH ×3 (09:31→21:56)
[2021-12-27] MEDS: CLOBETASOL 0.05% CREAM 15 GM TUBE TOP SCH (09:42)
[2021-12-27] MEDS: metroNIDAZOLE INJ 500 MG/100 ML PREMIX IV SCH (10:15)
[2021-12-27] MEDS: methylPREDNISolone SOD SUC 40 MG/1 ML VIAL IV SCH ×2 (11:21→21:57)
[2021-12-27] MEDS: AZITHROMYCIN INJ 500 MG in SODIUM CHLORIDE 0.9% 250 ML IV SCH (18:12)
[2021-12-28] MEDS: ALBUTEROL 2.5 MG/3 ML NEB RESP TX SCH ×4 (00:30→19:34)
[2021-12-28] MEDS: methylPREDNISolone SOD SUC 40 MG/1 ML VIAL IV SCH ×3 (05:00→22:09)
[2021-12-28] MEDS: ONDANSETRON 4 MG/2 ML VIAL IV PRN ×2 (05:55→22:12)
[2021-12-28] MEDS: HYDROmorphone 2 MG/1 ML VIAL IV PRN ×3 (05:57→22:13)
[2021-12-28] MEDS: DOCOSANOL 10% CREAM 2 GM TUBE TOP SCH ×5 (06:01→22:17)
[2021-12-28] MEDS: CEFEPIME 1,000 MG in SODIUM CHLORIDE 0.9% 100 ML IV SCH ×4 (06:02→22:07)
[2021-12-28 06:09] LABS: Basophils % 0.1 % (0.0-0.8); Hematocrit 28.3 VOL% (35.7-47.0); Hemoglobin 8.5 GM/DL (12.0-16.0); Immature Granulocytes % 1.3 %; Immature Granulocytes Absolute 0.16 #; Lymphocytes # 0.7 10*3/uL (1.4-4.0); Lymphocytes % 5.8 % (21.3-54.2); Mean Corpuscular Volume 74.7 FL (87-102); Mean Platelet Volume 9.1 FL (9.6-12.0); Monocytes % 2.3 % (1.7-12.7); NRBC # 0.06 10*3/uL; Neutrophils % 90.5 % (38.7-73.9); Platelet Count 476 T/CUMM (130-400); Red Blood Count 3.79 MC/CUMM (3.8-5.5); Red Cell Distribution Width 19.8 % (9.3-17.3); White Blood Count 12.2 T/CUMM (4-12)
[2021-12-28 06:23] LABS: Osmolality,Calculated 271.8 MOS/KG (273-304); Potassium 3.7 MMOL/L (3.5-5.1)
[2021-12-28] MEDS: GABAPENTIN 300 MG CAPSULE PO SCH ×3 (09:13→22:14)
[2021-12-28] MEDS: PANTOPRAZOLE 40 MG TABLET PO SCH (09:13)
[2021-12-28] MEDS: metroNIDAZOLE 500 MG TABLET PO SCH ×3 (09:13→22:14)
[2021-12-28] MEDS: POTASSIUM CHLORIDE 20 MEQ TABLET PO PRN (11:01)
[2021-12-28] MEDS: SODIUM CHLORIDE 0.9% 1,000 ML IV SCH ×3 (16:34→23:51)
[2021-12-28] MEDS: CLOBETASOL 0.05% CREAM 15 GM TUBE TOP SCH (17:26)
[2021-12-28] MEDS: AZITHROMYCIN INJ 500 MG in SODIUM CHLORIDE 0.9% 250 ML IV SCH (17:28)
[2021-12-28] MEDS: FERROUS SULFATE 325 MG TABLET PO SCH (22:14)
[2021-12-28] MEDS: HEPARIN 5,000 UNIT/1 ML VIAL SUBCUT SCH (22:16)
[2021-12-29] MEDS: ALBUTEROL 2.5 MG/3 ML NEB RESP TX SCH ×4 (01:13→19:16)
[2021-12-29] MEDS: CEFEPIME 1,000 MG in SODIUM CHLORIDE 0.9% 100 ML IV SCH ×4 (02:38→21:46)
[2021-12-29] MEDS: SODIUM CHLORIDE 0.9% 1,000 ML IV SCH (05:00)
[2021-12-29] MEDS: methylPREDNISolone SOD SUC 40 MG/1 ML VIAL IV SCH ×3 (05:03→21:46)
[2021-12-29] MEDS: DOCOSANOL 10% CREAM 2 GM TUBE TOP SCH ×5 (05:08→21:49)
[2021-12-29] MEDS: ONDANSETRON 4 MG/2 ML VIAL IV PRN (06:08)
[2021-12-29] MEDS: HYDROmorphone 2 MG/1 ML VIAL IV PRN ×3 (06:09→21:42)
[2021-12-29 06:14] LABS: Basophils % 0.1 % (0.0-0.8); Hemoglobin 8.9 GM/DL (12.0-16.0); Immature Granulocytes % 1.7 %; Immature Granulocytes Absolute 0.17 #; Lymphocytes # 0.8 10*3/uL (1.4-4.0); Lymphocytes % 8.5 % (21.3-54.2); Mean Corpuscular HGB Conc 30.7 GM/DL (32-36); Mean Corpuscular Volume 76.1 FL (87-102); Mean Platelet Volume 9.2 FL (9.6-12.0); Monocytes % 4.1 % (1.7-12.7); NRBC # 0.05 10*3/uL; Neutrophils % 85.6 % (38.7-73.9); Platelet Count 437 T/CUMM (130-400); Red Blood Count 3.81 MC/CUMM (3.8-5.5); Red Cell Distribution Width 20.3 % (9.3-17.3); White Blood Count 9.7 T/CUMM (4-12)
[2021-12-29 06:34] LABS: Calcium 8.2 MG/DL (8.5-10.1); Potassium 3.6 MMOL/L (3.5-5.1)
[2021-12-29] MEDS ORDERED: CHOLECALCIFEROL 1,000 UNIT TABLET PO SCH (09:00)
[2021-12-29] MEDS: PANTOPRAZOLE 40 MG TABLET PO SCH (09:05)
[2021-12-29] MEDS: metroNIDAZOLE 500 MG TABLET PO SCH ×3 (09:05→21:44)
[2021-12-29] MEDS: FERROUS SULFATE 325 MG TABLET PO SCH ×2 (09:05→21:44)
[2021-12-29] MEDS: GABAPENTIN 300 MG CAPSULE PO SCH ×3 (09:05→21:44)
[2021-12-29] MEDS: CLOBETASOL 0.05% CREAM 15 GM TUBE TOP SCH (09:06)
[2021-12-29] MEDS: HEPARIN 5,000 UNIT/1 ML VIAL SUBCUT SCH ×2 (09:06→21:45)
[2021-12-30] MEDS: ALBUTEROL 2.5 MG/3 ML NEB RESP TX SCH ×4 (00:04→19:58)
[2021-12-30] MEDS: CEFEPIME 1,000 MG in SODIUM CHLORIDE 0.9% 100 ML IV SCH ×4 (01:05→21:50)
[2021-12-30] MEDS: HYDROmorphone 2 MG/1 ML VIAL IV PRN ×3 (02:35→21:51)
[2021-12-30] MEDS: ONDANSETRON 4 MG/2 ML VIAL IV PRN (02:40)
[2021-12-30 05:44] LABS: Basophils % 0.1 % (0.0-0.8); Hematocrit 30.3 VOL% (35.7-47.0); Hemoglobin 9.2 GM/DL (12.0-16.0); Immature Granulocytes % 5.6 %; Immature Granulocytes Absolute 0.48 #; Lymphocytes # 0.9 10*3/uL (1.4-4.0); Lymphocytes % 10.3 % (21.3-54.2); Mean Corpuscular HGB Conc 30.4 GM/DL (32-36); Mean Corpuscular Volume 76.3 FL (87-102); Mean Platelet Volume 9.3 FL (9.6-12.0); Monocytes % 4.8 % (1.7-12.7); NRBC # 0.06 10*3/uL; Neutrophils % 79.2 % (38.7-73.9); Platelet Count 411 T/CUMM (130-400); Red Blood Count 3.97 MC/CUMM (3.8-5.5); Red Cell Distribution Width 20.2 % (9.3-17.3); White Blood Count 8.5 T/CUMM (4-12)
[2021-12-30] MEDS: DOCOSANOL 10% CREAM 2 GM TUBE TOP SCH ×5 (05:56→21:49)
[2021-12-30] MEDS: methylPREDNISolone SOD SUC 40 MG/1 ML VIAL IV SCH ×3 (05:56→21:45)
[2021-12-30 06:14] LABS: Hypochromia 1+; Lymphocytes 15 % (20-55); Microcytosis 1+; Platelet Estimate Adequate; Segmented Neutrophils 82 % (50-85); Total Cells Counted 100
[2021-12-30 06:19] LABS: Calcium 8.3 MG/DL (8.5-10.1); Osmolality,Calculated 284.1 MOS/KG (273-304); Potassium 3.5 MMOL/L (3.5-5.1)
[2021-12-30] MEDS: FERROUS SULFATE 325 MG TABLET PO SCH ×2 (09:35→21:51)
[2021-12-30] MEDS: CHOLECALCIFEROL 5,000 UNIT TABLET PO SCH (09:35)
[2021-12-30] MEDS: PANTOPRAZOLE 40 MG TABLET PO SCH (09:35)
[2021-12-30] MEDS: metroNIDAZOLE 500 MG TABLET PO SCH (09:35)
[2021-12-30] MEDS: GABAPENTIN 300 MG CAPSULE PO SCH ×3 (09:35→21:51)
[2021-12-30] MEDS: HEPARIN 5,000 UNIT/1 ML VIAL SUBCUT SCH (09:36)
[2021-12-30] MEDS: CLOBETASOL 0.05% CREAM 15 GM TUBE TOP SCH (14:34)
[2021-12-31] MEDS: ALBUTEROL 2.5 MG/3 ML NEB RESP TX SCH ×2 (01:35→07:19)
[2021-12-31] MEDS: CEFEPIME 1,000 MG in SODIUM CHLORIDE 0.9% 100 ML IV SCH ×2 (02:16→09:58)
[2021-12-31] MEDS: HYDROmorphone 2 MG/1 ML VIAL IV PRN ×2 (02:21→08:27)
[2021-12-31] MEDS: methylPREDNISolone SOD SUC 40 MG/1 ML VIAL IV SCH (04:55)
[2021-12-31] MEDS: ONDANSETRON 4 MG/2 ML VIAL IV PRN (05:00)
[2021-12-31 05:32] LABS: Basophils % 0.4 % (0.0-0.8); Hematocrit 32.3 VOL% (35.7-47.0); Hemoglobin 9.9 GM/DL (12.0-16.0); Immature Granulocytes % 9.9 %; Immature Granulocytes Absolute 0.76 #; Lymphocytes # 0.7 10*3/uL (1.4-4.0); Lymphocytes % 9.4 % (21.3-54.2); Mean Corpuscular HGB Conc 30.7 GM/DL (32-36); Mean Platelet Volume 9.7 FL (9.6-12.0); Monocytes % 6.3 % (1.7-12.7); NRBC # 0.04 10*3/uL; Platelet Count 467 T/CUMM (130-400); Red Blood Count 4.25 MC/CUMM (3.8-5.5); Red Cell Distribution Width 20.7 % (9.3-17.3); White Blood Count 7.7 T/CUMM (4-12)
[2021-12-31 05:57] LABS: Hypochromia 1+; Lymphocytes 13 % (20-55); Microcytosis 1+; Nucleated Red Blood Cells 1 (0-5); Platelet Estimate Adequate; Segmented Neutrophils 84 % (50-85); Total Cells Counted 100
[2021-12-31] MEDS: DOCOSANOL 10% CREAM 2 GM TUBE TOP SCH ×2 (06:27→09:59)
[2021-12-31 07:03] LABS: Sedimentation Rate-Westergren 44 MM/HR (0-20)
[2021-12-31 08:05] LABS: Calcium 8.2 MG/DL (8.5-10.1); Osmolality,Calculated 268.5 MOS/KG (273-304); Potassium 5.1 MMOL/L (3.5-5.1)
[2021-12-31 08:43] VITALS: BP 149/83
[2021-12-31] MEDS: CHOLECALCIFEROL 5,000 UNIT TABLET PO SCH (09:59)
[2021-12-31] MEDS: FERROUS SULFATE 325 MG TABLET PO SCH (10:02)
[2021-12-31] MEDS: GABAPENTIN 300 MG CAPSULE PO SCH (10:02)
[2021-12-31] MEDS: CLOBETASOL 0.05% CREAM 15 GM TUBE TOP SCH (10:03)
[2021-12-31] MEDS: PANTOPRAZOLE 40 MG TABLET PO SCH (10:03)
== END 2021-12-31 13:30 | disposition home or self-care (01) | DRG 385 ==
LOC: N.ED 16:17 → N.EDINP 23:15 → SUATTDRO 23:15 → N.EDINP 12-22 15:24 → N.5E 12-22 15:50
PROVIDERS: ADMIT Internal Medicine; ATTEND Internal Medicine